=== PATIENT | male | born 1955 | race Caucasian/White ===

== ENCOUNTER 2017-10-06 17:28 | Inpatient (IN) | payer MEDICARE, OTHER ==
[~2017-10-06 17:28] MED LIST: Iopamidol 370 76% 100 ML VIAL ONE; Iopamidol 370 76% 50 ML VIAL FS ONE
[2017-10-06 18:00] LABS: #Basophils 0.1 thou/uL (0.0-0.2); #Eosinphils 0.2 thou/uL (0.0-0.7); #Lymphocytes 3.8 thou/uL (1.20-3.40); #Monocytes 0.6 thou/uL (0.11-0.59); #Neutrophils 4.7 thou/uL (1.40-6.50); %Basophils 0.7 % (0.0-1.0); %Eosinophils 1.8 % (0.0-10.0); %Monocytes 5.9 % (0.0-10.0); %Neutrophils 50.6 % (42.0-75.0); Hemoglobin 15.6 g/dL (14.0-18.0); Mean Corpuscular HGB CONC 33.3 g/dL (32.0-36.0); Mean Corpuscular Hemoglobin 29.8 pg (27.0-31.0); Mean Corpuscular Volume 89.6 fl (80.0-94.0); Mean Platelet Volume 8.7 fL (7.4-10.4); Platelet Count 262 thou/uL (130-400); Red Blood Cell (RBC) Count 5.22 mill/uL (4.70-6.10); White Blood Cell (WBC) Count 9.3 thou/uL (4.8-10.8)
[2017-10-06 18:15] LABS: ALT (SGPT) 14 U/L (8-55); AST (SGOT) 19 U/L (5-34); Albumin 4.4 g/dL (3.4-4.8); Alkaline Phosphatase 98 U/L (40-150); Anion Gap 22 mmol/L (10-20); BUN (Urea Nitrogen) 17 mg/dL (8.4-25.7); Bilirubin, Total 0.6 mg/dL (0.2-1.2); Calc. Creatinine Clearance 0 mL/min (70-130); Calcium 10.4 mg/dL (7.8-10.44); Carbon Dioxide 17 mmol/L (23-31); Chloride 99 mmol/L (98-107); Estimated GFR-MDRD 63; Globulin 4.1 g/dL (2.4-3.5); Glucose 432 mg/dL (80-115); Potassium 4.1 mmol/L (3.5-5.1); Protein, Total 8.5 g/dL (5.8-8.1); Sodium 134 mmol/L (136-145)
[2017-10-06 18:17] LABS: CKMB 1.6 ng/mL (0-6.6); Troponin I Less than 0.010 ng/mL (< 0.028)
[2017-10-06] MEDS ORDERED: Aggrastat 12.5 MG/250 ML 250 ML ONE (18:26)
[2017-10-06] MEDS ORDERED: Aggrastat 12.5 MG/250 ML 250 ML IVPB SCH (18:30)
[2017-10-06] MEDS ORDERED: DOPamine 400 MG/D5W 250 ML 250 ML ONE (18:45)
[2017-10-06] MEDS ORDERED: Clopidogrel Bisulfate 300 MG TAB ONE (18:45)
[2017-10-06] MEDS ORDERED: Mag-Al 1200 mg/1200 mg/30 ML UDCUP PO PRN (19:13)
[2017-10-06] MEDS ORDERED: Morphine 4 MG/ML VIAL SLOW IVP PRN (19:13)
[2017-10-06] MEDS ORDERED: Zolpidem Tartrate 5 MG TAB PO PRN (19:13)
[2017-10-06] MEDS ORDERED: Nitroglycerin 0.4 MG TAB (25 Tab Bottle) SL PRN (19:13)
[2017-10-06] MEDS ORDERED: Milk Of Magnesia 30 ML UDCUP PO PRN (19:13)
[2017-10-06] MEDS ORDERED: DOPamine 400 MG/D5W 250 ML 250 ML IVPB SCH (19:30)
[2017-10-06] MEDS: Sodium Chloride 0.9% 1,000 ML IV SCH (19:30)
--- NOTE | 2017-10-06 20:12 | RAD ---
PORTABLE CHEST ONE VIEW 10/06/17 at 5:01 p.m. HISTORY: Chest pain. FINDINGS: The heart size is normal. The lungs are expanded without focal areas of consolidation, pneumothorax o r pleural effusions. IMPRESSION: No radiographic evidence of acute cardiopulmonary process. POS: [facility]
[2017-10-06] MEDS: Morphine 4 MG/ML VIAL SLOW IVP PRN (21:01)
[2017-10-06] MEDS ORDERED: FLU VACC QS2017-18 36 mo. & older 0.5 ML SYRINGE IM ONE (21:30)
[2017-10-06 22:30] VITALS: BMI 29.7
--- NOTE | 2017-10-06 23:49 | CCL ---
The patient was brought to the cardiac catheter finisher and inspector with ST elevation in II, III, F , V4 through V6 and ST depression in V2 and V3. 1% lidocaine was infiltrated into the right femoral area. Using ultrasound guidance, the right femoral artery was entered. 6 Vincentian sheath was inserted. ACTs were obtained during the case to guide heparin dosages to achieve an ACT of greater than 300. Initially, a 6 Vincentian Judkin's right 4 guide was inserted. Right coronary was totally occluded. A floppy choice was initially tried to traverse the area, but would not. With a Whisper wire and significant amount of manipulation the area was able to be crossed. An Emerge 3.0 x 15 mm balloon would not cross. This was removed and emerge 1.5 x 12 mm balloon was inserted and the area was predilated. This was removed and then the Emerge 3.0 x 15 mm balloon was positioned and predilated. Rebel 4.0 x 24 mm stent was then inserted. This would not traverse into the mid right coronary over the Whisper wire. Decision was then made to remove the stent and an extra support wire was inserted as a fawad wire to a Whisper wire. The stent was then placed over the extra support wire and again with some manipulation was able to be positioned and deployed. The Whisper wire was removed prior to deploying the stent. There appeared to be a significant narrowing or thrombus at the bifurcation of the posterior descending and posterolateral. Aggrastat was started and during the case, this appeared to become increasingly not significant The distal posterolateral was totally occluded and attempts were made to cross this with the extra support wire which were unsuccessful. There did appear to be a retrograde filling of this area to the left this may have been a chronic total occlusion. The right 4 guide was then removed. 6-Vincentian left 4 diagnostic catheter was inserted for left coronary arteriography. The sheaths were sutured in place. Aggrastat was continued. Also during the case, the patient received Plavix 600 mg. RESULTS: 1. Left main was normal. 2. The LAD had a 50% proximal and 50% mid stenosis. There was an 80% lesion in the first diagonal at a bifurcation. 3. The circumflex had a 50% proximal stenosis. 4. The right coronary artery was heavily calcified with a 99-100% mid stenosis and also total occlusion of the distal right posterolateral artery. INTERVENTION RESULTS: The initial lesion was 99-100%, final lesion was 0%. IMPRESSION: 1. Three-vessel coronary artery disease. 2. Successful stent placement in the mid right coronary artery. MAURY
[2017-10-07] MEDS ORDERED: Dextrose 50% Abboject 50 ML SYRINGE IVP PRN (00:04)
[2017-10-07] MEDS ORDERED: Dextrose 5% in Water 1,000 ML IV PRN ×2 (00:04→09:56)
[2017-10-07 00:11] LABS: CKMB 30.7 ng/mL (0-6.6); Troponin I 4.882 ng/mL (< 0.028)
[2017-10-07] MEDS: HYDROcodone/Acetaminophen 10/325 mg Tablet PO PRN ×2 (00:14→05:54)
[2017-10-07] MEDS: Insulin Regular 300 UNITS/3 ML VIAL SC PRN ×2 (00:18→06:24)
--- NOTE | 2017-10-07 01:04 | HP ---
HISTORY: Cristina Fitzgerald is a 62-year-old white male, who denies any significant cardiac problems in the past. Today, he was sitting and watching TV approximately 30 minutes prior to arrival in the emergency room, he began to have severe substernal chest pressure associated with diaphoresis, nausea, and shortness of breath. He came to the emergency room and had early changes consistent with an inferolateral myocardial infarction. He has been given four aspirin as well as sublingual nitroglycerin and his ST segment has continued to worsen, although he does state that his pain is improved. PAST MEDICAL HISTORY: Remarkable for diabetes and hypertension. He denies any history of hypercholesterolemia. MEDICATIONS: Unknown at this time. ALLERGIES: None. OPERATIONS: He has had laparoscopic cholecystectomy and he says he has 8 back surgeries with chronic back pain. SOCIAL HISTORY: He does not smoke or drink. FAMILY HISTORY: Both his mother and father had myocardial infarctions. REVIEW OF SYSTEMS: Twelve-point review of systems otherwise unremarkable. PHYSICAL EXAMINATION: VITAL SIGNS: Blood pressure 129/71, pulse of 80. HEENT: PERRL. NECK: Supple. CHEST: Clear. CARDIAC: S1 and S2 are normal, without any S3, S4, or murmurs. Carotid upstrokes are normal, without bruits. ABDOMEN: Normal bowel sounds, without tenderness or organomegaly. EXTREMITIES: Revealed no clubbing, cyanosis, or edema. NEUROLOGIC: Grossly intact. SKIN: Warm and dry. IMAGING: EKG reveals 4-[address] segment elevation in lead 3, 3-4 mm elevation in II and F, and V4 through V6 with reciprocal ST segment depression in the anterior chest leads consistent with inferoposterior, lateral myocardial infarction. LABORATORY DATA: Currently, is pending except for glucose of 337. He has had no significant previous admissions to this hospital. IMPRESSION: 1. Inferoposterior and lateral ST-elevation myocardial infarction. 2. Hypertension. 3. Diabetes. 4. Positive family history. 5. Chronic back pain. PLAN: The situation was discussed with the patient. It was recommended that he undergo emergent cardiac catheterization. Risks of this were discussed including , myocardial infarction, dye reaction, vascular injury, CVA, transfusion, limb loss, renal loss, etc. Also, risk of intervention with PTCA and stent placement were discussed including , myocardial infarction, emergent CABG, restenosis, stent thrombosis, vessel perforation, etc. He understands and is agreeable to proceed. We did discuss drug versus bare metal stents. With his multiple other health problems, I feel that his best option probably would be a bare metal stent. MAURY
[2017-10-07] MEDS: Sodium Chloride 0.9% 1,000 ML IV SCH (03:15)
[2017-10-07] MEDS ORDERED: Sodium Chloride 0.9% 1,000 ML IV SCH (04:00)
[2017-10-07] MEDS: Morphine 4 MG/ML VIAL SLOW IVP PRN ×2 (05:56→14:22)
[2017-10-07 06:41] LABS: #Lymphocytes 0.7 thou/uL (1.20-3.40); #Monocytes 0.5 thou/uL (0.11-0.59); #Neutrophils 9.9 thou/uL (1.40-6.50); %Eosinophils 0.3 % (0.0-10.0); %Lymphocytes 5.8 % (21.0-51.0); %Monocytes 4.8 % (0.0-10.0); %Neutrophils 89.1 % (42.0-75.0); Hemoglobin 14.4 g/dL (14.0-18.0); Mean Corpuscular HGB CONC 32.4 g/dL (32.0-36.0); Mean Corpuscular Hemoglobin 29.2 pg (27.0-31.0); Mean Corpuscular Volume 90.2 fl (80.0-94.0); Mean Platelet Volume 9.2 fL (7.4-10.4); Platelet Count 234 thou/uL (130-400); RBC Distribution Width 12.9 % (11.5-14.5); Red Blood Cell (RBC) Count 4.92 mill/uL (4.70-6.10); White Blood Cell (WBC) Count 11.1 thou/uL (4.8-10.8)
[2017-10-07 07:05] LABS: ALT (SGPT) 23 U/L (8-55); AST (SGOT) 49 U/L (5-34); Albumin 4.3 g/dL (3.4-4.8); Alkaline Phosphatase 93 U/L (40-150); Anion Gap 23 mmol/L (10-20); BUN (Urea Nitrogen) 18 mg/dL (8.4-25.7); Bilirubin, Total 0.7 mg/dL (0.2-1.2); Calc. Creatinine Clearance 87 mL/min (70-130); Calcium 10.1 mg/dL (7.8-10.44); Carbon Dioxide 16 mmol/L (23-31); Cardiac Risk 4.1 (Less than 4.5); Chloride 104 mmol/L (98-107); Cholesterol 147 mg/dl (< 200 Desired); Estimated GFR-MDRD 65; Globulin 3.2 g/dL (2.4-3.5); Glucose 326 mg/dL (80-115); HDL Cholesterol 36 mg/dL (>60 Neg Risk); LDL Cholesterol, Calculated 92 mg/dL; Potassium 4.2 mmol/L (3.5-5.1); Protein, Total 7.5 g/dL (5.8-8.1); Sodium 139 mmol/L (136-145); Triglycerides 96 mg/dL (Less than 150)
[2017-10-07 07:11] LABS: CKMB 47.1 ng/mL (0-6.6); Troponin I 11.215 ng/mL (< 0.028)
[2017-10-07] MEDS ORDERED: Prevnar 13-Val Conj/PF 0.5 ML SYRINGE IM ONE (09:00)
[2017-10-07] MEDS ORDERED: Dextrose 50% Abboject 50 ML SYRINGE SLOW IVP PRN (09:56)
[2017-10-07] MEDS ORDERED: HumaLOG 300 UNITS/3 ML VIAL SC PRN ×2 (09:56)
[2017-10-07] MEDS: Clopidogrel Bisulfate 75 MG TAB PO SCH (10:29)
[2017-10-07] MEDS ORDERED: Insulin Detemir 100 UNITS/ML 12 UNITS in Pre-Filled Syringe 1 EACH SC SCH (12:00)
[2017-10-07 12:42] LABS: CKMB 39.3 ng/mL (0-6.6); Critical Call CKMBM RESULT DECREASING; Critical Call Chem Troponin I RESULT DECREASING; Troponin I 9.416 ng/mL (< 0.028)
--- NOTE | 2017-10-07 13:05 | CON ---
DATE OF CONSULTATION: 10/07/2017 PRIMARY CARE PHYSICIAN: The patient does not have a primary care physician. ATTENDING PHYSICIAN: Dr. Roel Gallardo. REASON FOR CONSULTATION: Diabetes management. HISTORY OF PRESENT ILLNESS: Mr. Fitzgerald is a pleasant 62-year-old gentleman who was admitted to the [facility] for an acute inferior ME. He says that he was doing fine until yesterday. He had sat down to watch TV and then suddenly he began having chest pain and broke out into his left. He came to the e mergency room where he was found to have an inferoposterior and lateral ST segment elevation myocardi al infarction. He was taken emergently to the laboratory apparatus glass grinder and was found to have 3-vessel coronary arter y disease with 3-vessel coronary artery disease. He had a successful stent placement to the mid RCA. I am seeing him the following morning and he has no complaints of having some back pain from lying down for a long period. He denies any chest pain or shortness of breath. When asked about his diabe july, he says he has been diabetic for approximately 20 years. He says that he recently moved to the area and currently does not have a primary care physician and has not been taking his Lantus insulin on a regular basis. He says his diabetes is generally not that well controlled and his last hemoglob in A1c was about 9.1. PAST MEDICAL HISTORY: Again, significant for diabetes mellitus and hypertension. PAST SURGICAL HISTORY: He has had 7 back surgeries and cholecystectomy. ALLERGIES: No known drug allergies. SOCIAL HISTORY: He is and has 3 children. He is a nonsmoker, nondrinker. FAMILY HISTORY: Significant for heart disease in both parents. His father around age 69 and hi s mother around age 68. He also has brothers with heart disease and cancer. MEDICATIONS: Jardiance daily, Lantus insulin 35 units q.p.m. and benazepril 40 mg daily, Sycamore 10/32 5 q.6 hours as needed, morphine sulfate extended release 100 mg twice a day and Cymbalta 60 mg daily, amlodipine, atorvastatin 1 tablet daily, oxycodone 15 mg q.4 hours as needed. PHYSICAL EXAMINATION: GENERAL: He is alert and oriented. He appears to be in no acute distress. VITAL SIGNS: His blood pressure was 113/55, heart rate 74, respiratory rate of 20, and he is afebril e. HEENT: Pupils equal, round, and reactive. Extraocular muscles are intact. Sclerae are anicteric. Throat: There is no erythema, no exudates. NECK: No adenopathy, no bruits. LUNGS: Clear. There is no wheezing, no rales. CARDIOVASCULAR: He has a normal S1 and S2. No S3 or S4. No murmurs, clicks or rubs. ABDOMEN: Soft, obese, it is nontender, nondistended. Positive for bowel sounds. No rebound or guar ding. EXTREMITIES: Curiously the patient has no hair on his lower extremities. He is essentially hairless ; however, his pulses are palpable bilaterally. He does have some mycotic nails on the left great to e. NEUROLOGIC: The exam is nonfocal. LABORATORY: Sodium 139, potassium 4.2, chloride is 104, CO2 is 16, BUN of 18, creatinine 1.14, gluco se is 326, troponin was 11.215. The white blood cell count 11.1, hemoglobin 14.4, hematocrit is 44.4 , platelet count is 234. ASSESSMENT: 1. This is a pleasant 62-year-old gentleman who is being admitted for an acute inferior ST segment e levation myocardial infarction. He also has a history of diabetes mellitus which has not been well c ontrolled. With regards to the diabetes the plan is that he will be able to eat a solid diet today. Therefore, we will go ahead and give him half of his usual Lantus dose now since his blood sugars ar e elevated and cover him with a sliding scale. We can restart his usual dose this evening and then t itrate as needed. If he has his own Jardiance that can be taken while he is in the hospital. 2. With regards to the ST-segment elevation myocardial infarction we will defer care to Cardiology. Thank you for allowing us to participate in the care of this very nice gentleman.
[2017-10-07] MEDS ORDERED: Haloperidol Lactate 5 MG/ML VIAL FS PRN (18:13)
[2017-10-07] MEDS: Metoprolol Tartrate 25 MG TAB PO SCH (21:38)
[2017-10-07] MEDS: Atorvastatin Calcium 40 MG TAB PO SCH (21:38)
[2017-10-07] MEDS: Insulin Detemir 100 UNITS/ML 35 UNITS in Pre-Filled Syringe 1 EACH SC SCH (21:39)
--- NOTE | 2017-10-07 23:45 | CON ---
DATE OF CONSULTATION: 10/07/2017 HISTORY OF PRESENT ILLNESS: Mr. Fitzgerald is a pleasant gentleman who presented yesterday afternoon with chest discomfort. He underwent coronary intervention with the placement of a stent. He is in the Critical Care Unit. His just had a chest sheath removed. I am consulted because of his presence. He denies having chest pain. He denies shortness of breath or orthopnea. PAST MEDICAL HISTORY: Remarkable for diabetes and hypertension. PAST SURGICAL HISTORY: Remarkable for cholecystectomy, multiple back surgeries. He says he deals ch ronic back pain. SOCIAL HISTORY: He is a non-smoker and nondrinker. ALLERGIES: He has no reported drug allergies. FAMILY HISTORY: Positive for vascular disease. REVIEW OF SYSTEMS: A 12-point review of systems otherwise negative. PHYSICAL EXAMINATION: VITAL SIGNS: Blood pressure 120/59, heart rate 86, respiratory rate 16, oximetry is 96%. HEENT: Pupils are equal. Sclerae is anicteric. NECK: Supple. LUNGS: Remarkable for coarse equal breath sounds. HEART: Regular rhythm. S1 and S2 are normal. ABDOMEN: Soft and nontender. EXTREMITIES: Without clubbing, cyanosis, or edema. LABORATORY DATA: White count 11.1, hemoglobin 14.4, platelets 234. Electrolytes: Sodium 139, potas sium 4.2, chloride 104, bicarbonate 16, anion gap was 19 on presentation, BUN 18, creatinine 1.14, gl ucose 326. Peak troponin is 11.2. Myocardial infarction treated of a mid right coronary lesion. Other lesions were not extended. IMPRESSION: 1. Status post myocardial infarction with percutaneous intervention that has been successful. Addit ional coronary artery disease to be addressed by Cardiology. 2. Diabetes. 3. Hypertension. PLAN: Continue current care. He appears to be medically stable at this time This is a 70-minute consult of which 50% of the time was spent reviewing records, reviewing x-rays, r eviewing lab clerk reports on the unit discussing care with care providers and the nursing staff.
--- NOTE | 2017-10-08 09:19 | PDOC.PN ---
- Subjective Encounter Start Date: 10/08/17 Encounter Start Time: 09:17 Subjective: no chest pain or sob - Objective MAR Reviewed: Yes Vital Signs & Weight: Vital Signs (12 hours) Temp Pulse Resp BP Pulse Ox 10/08/17 07:51 97.3 F L 73 16 98 10/08/17 07:49 97.3 F L 73 16 117/60 98 10/08/17 02:26 96.9 F L 69 20 98 10/08/17 02:16 96.9 F L 69 20 113/56 L 98 10/08/17 00:00 98.4 F Weight Weight 206 lb 3.2 oz Most Recent Monitor Data Heart Rate from ECG 71 NIBP 114/59 NIBP BP-Mean 65 Respiration from ECG 16 SpO2 98 I&O: 10/07/17 10/08/17 10/09/17 06:59 06:59 06:59 Intake Total 2992 2262 Output Total 2450 3050 Balance 542 -788 Result Diagrams: 10/07/17 06:24 10/07/17 06:24 Additional Labs: Accuchecks 10/08/17 10/07/17 10/07/17 05:45 21:45 17:48 POC Glucose 99 161 H 171 H 10/07/17 12:35 POC Glucose 218 H Phys Exam - Physical Examination Constitutional: NAD Neck: no JVD Respiratory: clear to auscultation bilateral Cardiovascular: RRR, no significant murmur Gastrointestinal: soft, non-tender, positive bowel sounds Musculoskeletal: no edema, pulses present Dx/Plan (1) STEMI (ST elevation myocardial infarction) Status: Acute Qualifiers: Involved coronary artery: right coronary artery Qualified Code(s): I21.11 - ST elevation (STEMI) myocardial infarction involving right coronary artery (2) DM type 2 (diabetes mellitus, type 2) Status: Chronic Qualifiers: Diabetes mellitus complication status: without complication Diabetes mellitus equipment operator intermodal yard insulin use: with half-way use Qualified Code(s): E11.9 - Type 2 diabetes mellitus without complications; Z79.4 - retirement (current) use of insulin; Z79.4 - retirement (current) use of insulin; Z79.4 - retirement ( current) use of insulin; Z79.4 - retirement (current) use of insulin (3) HTN (hypertension) Code(s): I10 - ESSENTIAL (PRIMARY) HYPERTENSION Status: Chronic Qualifiers: Hypertension type: essential hypertension Qualified Code(s): I10 - Essential (primary) hypertension (4) Dyslipidemia Code(s): E78.5 - HYPERLIPIDEMIA, UNSPECIFIED Status: Chronic - Plan cont plavix, ASA, statin -: cont accu/ss/ long acting insuli- adjust dose as appropriate * .
[2017-10-08] MEDS: Metoprolol Tartrate 25 MG TAB PO SCH ×2 (09:41→20:34)
[2017-10-08] MEDS: Clopidogrel Bisulfate 75 MG TAB PO SCH (09:41)
[2017-10-08] MEDS: HYDROcodone/Acetaminophen 10/325 mg Tablet PO PRN (17:55)
--- NOTE | 2017-10-08 19:53 | PRG ---
DATE OF SERVICE: 10/08/2017 SUBJECTIVE: Cristina Fitzgerald has no complaints. He is just complaining of feeling weak. He denies having any chest pain. He ambulated today. He says without not much difficulty. OBJECTIVE: GENERAL: He is in no distress. He is afebrile. VITAL SIGNS: Heart rate in the 60s, respiratory rate is the teens, oximetry is 96, blood pressure 12 6/62 this morning, 119/58 this afternoon. Intake and output is negative 788. LUNGS: Clear. HEART: Regular rhythm. ABDOMEN: Soft. IMPRESSION: Status post myocardial infarction with percutaneous intervention. Plan per Cardiology, he is stable after moving out of the Critical Care Unit. We will sign off.
[2017-10-08] MEDS: Insulin Detemir 100 UNITS/ML 35 UNITS in Pre-Filled Syringe 1 EACH SC SCH (20:34)
[2017-10-08] MEDS: Atorvastatin Calcium 40 MG TAB PO SCH (20:34)
[2017-10-09] MEDS: HYDROcodone/Acetaminophen 10/325 mg Tablet PO PRN ×4 (00:22→21:32)
[2017-10-09] MEDS ORDERED: Sodium Chloride 0.9% 10 ML ONE (07:52)
--- NOTE | 2017-10-09 08:18 | PDOC.PN ---
- Subjective Encounter Start Date: 10/09/17 Encounter Start Time: 08:16 Subjective: stronger, no chest pain, sob - Objective MAR Reviewed: Yes Vital Signs & Weight: Vital Signs (12 hours) Temp Pulse Resp BP Pulse Ox 10/09/17 03:50 97.4 F L 100 20 117/60 96 Weight Weight 207 lb 14.4 oz Most Recent Monitor Data Heart Rate from ECG 71 NIBP 114/59 NIBP BP-Mean 65 Respiration from ECG 16 SpO2 98 I&O: 10/08/17 10/09/17 10/10/17 06:59 06:59 06:59 Intake Total 2262 510 Output Total 3050 600 Balance -788 -90 Result Diagrams: 10/07/17 06:24 10/07/17 06:24 Additional Labs: Accuchecks 10/09/17 10/08/17 10/08/17 06:03 20:41 20:19 POC Glucose 103 173 H 175 H 10/08/17 10/08/17 16:42 11:44 POC Glucose 147 H 189 H Phys Exam - Physical Examination Neck: no JVD Respiratory: clear to auscultation bilateral Cardiovascular: RRR, no significant murmur, no rub Gastrointestinal: soft, non-tender, positive bowel sounds Musculoskeletal: no edema Dx/Plan (1) STEMI (ST elevation myocardial infarction) Status: Acute Qualifiers: Involved coronary artery: right coronary artery Qualified Code(s): I21.11 - ST elevation (STEMI) myocardial infarction involving right coronary artery (2) DM type 2 (diabetes mellitus, type 2) Status: Chronic Qualifiers: Diabetes mellitus complication status: without complication 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: with dry end tester use Qualified Code(s): E11.9 - Type 2 diabetes mellitus without complications; Z79.4 - corn shucker (current) use of insulin; Z79.4 - corn shucker (current) use of insulin; Z79.4 - FDC ( current) use of insulin; Z79.4 - FDC (current) use of insulin (3) HTN (hypertension) Code(s): I10 - ESSENTIAL (PRIMARY) HYPERTENSION Status: Chronic Qualifiers: Hypertension type: essential hypertension Qualified Code(s): I10 - Essential (primary) hypertension (4) Dyslipidemia Code(s): E78.5 - HYPERLIPIDEMIA, UNSPECIFIED Status: Chronic - Plan doing well, cont ASA, statin, plavix, b-blocked -: discuss with cardiology * .
[2017-10-09] MEDS: Clopidogrel Bisulfate 75 MG TAB PO SCH (08:46)
[2017-10-09] MEDS: Metoprolol Tartrate 25 MG TAB PO SCH ×2 (08:46→21:14)
[2017-10-09] MEDS: Atorvastatin Calcium 40 MG TAB PO SCH (21:14)
[2017-10-09] MEDS: Insulin Detemir 100 UNITS/ML 35 UNITS in Pre-Filled Syringe 1 EACH SC SCH (21:15)
[2017-10-10] MEDS: HYDROcodone/Acetaminophen 10/325 mg Tablet PO PRN ×3 (06:37→15:29)
[2017-10-10] MEDS ORDERED: Sodium Chloride 0.9% 10 ML ONE (08:31)
[2017-10-10] MEDS: Metoprolol Tartrate 25 MG TAB PO SCH (08:52)
[2017-10-10] MEDS: Clopidogrel Bisulfate 75 MG TAB PO SCH (08:52)
[2017-10-10 15:33] VITALS: BP 124/70; TEMP 97.9
--- NOTE | 2017-10-10 16:51 | DIS ---
DATE OF ADMISSION: 10/07/2017 DATE OF DISCHARGE: 10/10/2017 DISPOSITION: Discharged home. The patient initially admitted by Dr. Gallardo. The patient has an out of town physician, Kathy Luna. FINAL DIAGNOSES: ST elevation myocardial infarction, diabetes mellitus type 2, dyslipidemia, hyperte nsion. DISCHARGE MEDICATIONS: Lipitor 80 mg a day, Plavix 75 mg a day, detemir insulin 35 units at bedtime, metoprolol 50 mg twice a day, nitroglycerin 0.4 mg sublingual, Jardiance 25 mg p.o. daily, Cymbalta 60 mg daily. MEDICATIONS HELD: Amlodipine, benazepril. ALLERGIES: None. PENDING AT THE TIME OF DISCHARGE: Nothing. CODE STATUS: FULL. HOSPITAL COURSE: The patient was seen in the emergency room and referred to Dr. Gallardo with a ST e levation myocardial infarction. EKG was consistent with inferolateral myocardial infarction. The gwen barrera was taken on cardiac catheterization lab. He had 3-vessel coronary artery disease. He had a s uccessful PCI bare metal stent to the right coronary artery. Patient's initial laboratory revealed t roponin to 4.9, 11.2, 9.4 with elevated CK-MBs. Basic metabolic profile: Sodium 134, potassium 4.1, chloride 99, CO2 of 17, BUN 17, creatinine 1.17, blood sugar initially 337. He has done remarkably well postoperatively. Sound was consulted for medical management. He was placed on Accu-Cheks, slid ing scale, continued on his prehospitalization insulin dose. His blood sugars have been adequately c ontrolled under 200 at this time. His Jardiance has been reinstituted at the time of discharge. He will need followup for control with his PCP. Initial CBC was normal. Follow up CBC showed a mild el evation of white count 11.1, otherwise unremarkable. While the patient was in the Intensive Care Uni , he was seen by engineering designer, Dr. Lauro Bhandari. The patient is doing well at this time. He is bein g seen today by Dr. Gallardo and has been released per Dr. Gallardo. His discharge prescriptions hav e been written. He is off his amlodipine and benazepril. His last 4 blood pressures have been 121/6 0, 137/63, 143/72 and 124/70. Therefore, these are being continued off. The patient has an appointm ent to see his primary care doctor Kathy Luna, 10/17/2017 at 9:20 a.m., has an appointment with [facility] cardiac rehabilitation on 10/23/2017. He will be followed up by Dr. Roel Gallardo per his recommendations.
[2017-10-10] MEDS ORDERED: Atorvastatin Calcium 40 MG TAB PO SCH (21:00)
[2017-10-10] MEDS ORDERED: Metoprolol Tartrate 50 MG TAB PO SCH (21:00)
== END 2017-10-10 17:34 | disposition home or self-care (01) | DRG 249 ==
LOC: ERS 17:28 → CCU 19:30 → 2NO 10-08 02:38
PROVIDERS: ADMIT Internal Medicine Cardiovascular Disease; ATTEND Internal Medicine Cardiovascular Disease
PROC: 02703DZ Dilation of Coronary Artery, One Artery with Intraluminal Device, Percutaneous Approach (ICD-10-PCS; principal; 2017-10-06)
PROC: 4A023N7 Measurement of Cardiac Sampling and Pressure, Left Heart, Percutaneous Approach (ICD-10-PCS; 2017-10-06)
PROC: B2111ZZ Fluoroscopy of Multiple Coronary Arteries using Low Osmolar Contrast (ICD-10-PCS; 2017-10-06)
PROC: 02C03ZZ Extirpation of Matter from Coronary Artery, One Artery, Percutaneous Approach (ICD-10-PCS; 2017-10-06)
PROC: 3E033GC Introduction of Other Therapeutic Substance into Peripheral Vein, Percutaneous Approach (ICD-10-PCS; 2017-10-06)
DX: I21.11 ST elevation (STEMI) myocardial infarction involving right coronary artery (principal); E11.9 Type 2 diabetes mellitus without complications; I21.19 ST elevation (STEMI) myocardial infarction involving other coronary artery of inferior wall; E78.00 Pure hypercholesterolemia, unspecified; I10 Essential (primary) hypertension; M54.9 Dorsalgia, unspecified; G89.29 Other chronic pain; Z90.49 Acquired absence of other specified parts of digestive tract; Z79.4 Long term (current) use of insulin
CPT/HCPCS: 36415; 36416; 71045; 76942; 80053; 80061; 82553; 83880; 84484; 85025; 85347; 90471; 90682; 92941; 92977; 93005; 93010; 93306; 93454; 93798; 94760; 96361; 96374; A4216; C1769; C1876; C1887; G0008; J1265; J1644; J1815; J2270; J3246; Q2036

== ENCOUNTER 2018-06-21 14:38 | Inpatient (IN) | payer MEDICARE ==
[2018-06-21 15:44] LABS: Bilirubin Negative (Negative); Blood, Urine Negative (Negative); Clarity CLEAR (Clear); Glucose, Urine (Dipstick) >=1000 mg/dL (Negative); Leukocyte Negative (Negative); Nitrite Negative (Negative); Protein, Urine (Dipstick) Trace mg/dL (Neg-Trace); Specific Gravity, Urine 1.024 (1.002-1.036); Urobilinogen 0.2 mg/dL (0.2-1.0); pH, Urine 5.5 (5.0-9.0)
[2018-06-21 16:10] LABS: Mean Corpuscular HGB CONC 30.9 g/dL (32.0-36.0); Mean Corpuscular Hemoglobin 29.8 pg (27.0-31.0); Mean Corpuscular Volume 96.6 fL (78.0-98.0); Mean Platelet Volume 8.5 fL (7.4-10.4); Platelet Count 344 thou/uL (130-400); RBC Distribution Width 12.9 % (11.5-14.5); Red Blood Cell (RBC) Count 5.69 mill/uL (4.70-6.10); White Blood Cell (WBC) Count 20.4 thou/uL (4.8-10.8)
[2018-06-21 16:20] LABS: Base Excess-Venous -25.2 mmol/L (0 (+/- 2.5)); Bicarbonate (HCO3v) 3.9 mmol/L (1.0-85.0); CO2 Tension (PvCO2) 15.6 mmHg (41.0-51.0); Calcium, Ionized 1.15 mmol/L (1.12-1.32); Hemoglobin - Calc 19.7 g/dL (12.0-18.0); O2 Tension (PvO2) 41.7 mmHg (35.0-45.0); Potassium 5.1 mmol/L (3.4-4.7); T. Carbon Dioxide 4.4 mmol/L (1.0-85.0); pH (Venous) 7.012 (7.35-7.45)
[2018-06-21 16:25] LABS: Glucose 320 mg/dL (80-115); MDiff Complete? YES
[2018-06-21 16:26] LABS: Band 4 % (5-11); Lymphocytes 9 % (21-51); Monocytes 4 % (0-10); Neutrophil 83 % (42-75); PLT Morphology Comment Appears Adequate; RBC Morphology Normal
[2018-06-21 16:32] LABS: ALT (SGPT) 17 U/L (8-55); AST (SGOT) 17 U/L (5-34); Albumin 4.8 g/dL (3.4-4.8); Alkaline Phosphatase 112 U/L (40-150); BUN (Urea Nitrogen) 28 mg/dL (8.4-25.7); Bilirubin, Total 0.6 mg/dL (0.2-1.2); Calc. Creatinine Clearance 0 mL/min (70-130); Calcium 10.2 mg/dL (7.8-10.44); Chloride 106 mmol/L (98-107); Estimated GFR-MDRD 36; Globulin 3.8 g/dL (2.4-3.5); Glucose 322 mg/dL (80-115); Potassium 5.3 mmol/L (3.5-5.1); Protein, Total 8.6 g/dL (5.8-8.1); Sodium 136 mmol/L (136-145)
[2018-06-21 16:36] LABS: CKMB 2.8 ng/mL (0-6.6); Troponin I 0.084 ng/mL (< 0.028)
[2018-06-21 16:37] LABS: Carbon Dioxide Less than 8 mmol/L (23-31)
[2018-06-21] MEDS ORDERED: Piperacillin/Tazobactam 4.5 GM VIAL ONE (16:59)
[2018-06-21 17:19] LABS: Actual Bicarbonate (HCO3a) 3.2 mEq/L (22-28); Analyzer IN Cardio ER; Base Excess (BEa) -23.4 mEq/L (-2.0 to +3.0); Calcium, Ionized 1.33 mmol/L (1.12-1.30); Carboxyhemoglobin (COHb) 0.5 gm% (0.0-3.0); Hemoglobin (Hb) 15.9 g/dL (14.0-18.0); O2 Tension (PaO2) 188.2 mmHg (> 80.0); Potassium - ABG Lab 4.92 mmol/L (3.70-5.30)
[2018-06-21 17:22] LABS: pH, Arterial 7.12 (7.35-7.45)
[2018-06-21 17:23] LABS: CO2 Tension 10.2 mmHg (35.0-45.0)
[2018-06-21] MEDS ORDERED: Insulin Regular 100 units/100 ml in NS IVPB SCH (17:30)
--- NOTE | 2018-06-21 18:07 | RAD ---
PORTABLE AP CHEST X-RAY: 06/21/2018 HISTORY: Chest pain and shortness of breath since Friday. COMPARISON: 10/06/2017 FINDINGS: There are dorsum column stimulator leads again overlying the thoracic spine. The cardiac silhouette and pulmonary vasculature are within normal limits. Minimal linear scarring versus atelectasis is pr esent at each lung base. The lungs are otherwise clear. There has been no interval change from the prior exam. IMPRESSION: No acute cardiopulmonary process. POS: [facility]
--- NOTE | 2018-06-21 18:38 | PDOC.FPRHP ---
- History of Present Illness Chief Complaint: Shortness of breath History of Present Illness: Mr. Fitzgerald presents to the ED today with increased rate of respiration. He has been not feeling himself for the past week and for the past three days has had an increase in his chronic rib pain, decreased PO intake, headache, nausea and vomiting. Denies any fever, new chest pain, focal weakness, diarrhea , or dysuria. Unsure if he has taken his insulin as prescribed. He stopped taking his metformin 2 wks ago because it was upsetting his stomach. Pt with increased somnolence and difficulty speaking, history obtained from at time of exam and medical records ED Course: placed on BIPAP, ABG/VBG revealed acidosis, BMP + anion gap of 20, glucose 320, tropx1 .085, elevated BUN/CR, glucose 320. WBC 20.4 UA + for ketones - CXR - Allergies/Adverse Reactions Allergies Allergy/AdvReac Type Severity Reaction Status Date / Time No Known Allergies Allergy Verified 10/06/17 23:06 - Home Medications Medication Instructions Recorded Confirmed Type Empagliflozin [Jardiance] 25 mg PO DAILY 10/06/17 06/21/18 History HYDROcodone Bit/APAP 10/325 [[place] 1 tab PO Q6HR PRN 10/06/17 06/21/18 History 10/325] Morphine Sulfate [Morphine Sulfate 100 mg PO Q12HR 10/06/17 06/21/18 History ER] Atorvastatin Calcium 80 mg PO HS #30 tablet 10/10/17 06/21/18 Rx Nitroglycerin 0.4 mg SL PRN PRN #25 tab.subl 10/10/17 06/21/18 Rx Aspirin [Aspirin Chewable] 81 mg PO DAILY 06/21/18 06/21/18 History DULoxetine [Cymbalta] 60 mg PO BID 06/21/18 06/21/18 History Ezetimibe [Zetia] 10 mg PO DAILY 06/21/18 06/21/18 History Isosorbide Mononitrate [Isosorbide 30 mg PO DAILY 06/21/18 06/21/18 History Mononitrate ER] metFORMIN HCl [Metformin HCl] 1,000 mg PO BID 06/21/18 06/21/18 History oxyCODONE /Acetaminophen [Percocet 2 tab PO Q4HR PRN 06/21/18 06/21/18 History 5/325] - History PMHx:DMII, HTN, HLD, CAD, Chronic pain PSHx: Spinal surgeries x8, cholecystectomy, Cardiac cath with stent 2017 FHx: none Social: no TAD - Review of Systems General: reports: fever/chills, fatigue. denies: weight/appetite/sleep changes Eyes: reports: vision changes ENT: denies: nasal congestion, rhinorrhea Respiratory: denies: cough, shortness of breath Cardiovascular: reports: chest pain (chronic). denies: palpitation, edema Gastrointestinal: reports: nausea, vomiting. denies: diarrhea, constipation, GI bleeding Genitourinary: denies: incontinence, dysuria Skin: denies: rashes, lesions, jaundice Musculoskeletal: denies: pain, tenderness Neurological: reports: other (headache). denies: numbness, syncope Psychological: reports: other (increased lethargy) - Vital signs BP: [130/66] HR: [106] RR: [28] Tmax: [97.9] Pox: [100]% on [BIPAP] Wt: [ 93.4kg] - Physical Exam Constitutional: other (Orientedx2, increased somnolence) HEENT: normocephalic and atraumatic, EOMI, grossly normal vision, grossly normal hearing Neck: supple, trachea midline Chest: no-tender to palpation Heart: RRR, normal S1/S2 Lungs: CTAB, good air movement, other (increased rate, bipap set to 20 resp/min) Abdomen: soft, non-tender, bowel sounds present Musculoskeletal: normal structure, normal tone Neurological: no focal deficit, CN II-XII intact Skin: no rash/lesions, capillary refill <2 seconds, no jaundice Heme/Lymphatic: no unusual bruising or bleeding, no purpura FMR H&P: Results - Labs Result Diagrams: 06/21/18 16:03 06/21/18 22:31 Lab results: WBC 20.4 thou/uL (4.8-10.8) H 06/21/18 16:03 Hgb 17.0 g/dL (14.0-18.0) 06/21/18 16:03 Hct 55.0 % (42.0-52.0) H 06/21/18 16:03 MCV 96.6 fL (78.0-98.0) 06/21/18 16:03 Plt Count 344 thou/uL (130-400) 06/21/18 16:03 Band Neuts % (Manual) 4 % (5-11) L 06/21/18 16:03 ABG pH 7.12 (7.35-7.45) L* 06/21/18 17:17 ABG pCO2 10.2 mmHg (35.0-45.0) L* 06/21/18 17:17 ABG pO2 188.2 mmHg (> 80.0) H 06/21/18 17:17 VBG pCO2 15.6 mmHg (41.0-51.0) L 06/21/18 16:16 VBG pO2 41.7 mmHg (35.0-45.0) 06/21/18 16:16 Sodium 136 mmol/L (136-145) 06/21/18 16:03 Potassium 5.3 mmol/L (3.5-5.1) H 06/21/18 16:03 Chloride 106 mmol/L (98-107) 06/21/18 16:03 Carbon Dioxide Less than 8 mmol/L (23-31) L* 06/21/18 16:03 BUN 28 mg/dL (8.4-25.7) H 06/21/18 16:03 Creatinine 1.87 mg/dL (0.6-1.3) H 06/21/18 16:03 Glucose 322 mg/dL (80-115) H 06/21/18 16:03 Lactic Acid 1.7 mmol/L (0.5-2.2) 06/21/18 17:56 Calcium 10.2 mg/dL (7.8-10.44) 06/21/18 16:03 Total Bilirubin 0.6 mg/dL (0.2-1.2) 06/21/18 16:03 AST 17 U/L (5-34) 06/21/18 16:03 ALT 17 U/L (8-55) 06/21/18 16:03 Alkaline Phosphatase 112 U/L (40-150) 06/21/18 16:03 CK-MB (CK-2) 2.8 ng/mL (0-6.6) 06/21/18 16:03 B-Natriuretic Peptide 127.6 pg/mL (0-100) H 06/21/18 16:03 Serum Total Protein 8.6 g/dL (5.8-8.1) H 06/21/18 16:03 Albumin 4.8 g/dL (3.4-4.8) 06/21/18 16:03 Urine Ketones > or equal to 80 mg/dL (Negative) H 06/21/18 15:25 Urine Blood Negative (Negative) 06/21/18 15:25 Urine Nitrite Negative (Negative) 06/21/18 15:25 Ur Leukocyte Esterase Negative (Negative) 06/21/18 15:25 FMR H&P: A/P - Problem List (1) Diabetic ketoacidosis associated with type 2 diabetes mellitus Current Visit: Yes Status: Acute Code(s): E11.10 - TYPE 2 DIABETES MELLITUS WITH KETOACIDOSIS WITHOUT COMA (2) Acute kidney injury Current Visit: Yes Status: Acute Code(s): N17.9 - ACUTE KIDNEY FAILURE, UNSPECIFIED (3) Hyperkalemia Current Visit: Yes Status: Acute Code(s): E87.5 - HYPERKALEMIA (4) Leukocytosis Current Visit: Yes Status: Acute Code(s): D72.829 - ELEVATED WHITE BLOOD CELL COUNT, UNSPECIFIED (5) Elevated troponin Current Visit: Yes Status: Acute Code(s): R74.8 - ABNORMAL LEVELS OF OTHER SERUM ENZYMES (6) Dyslipidemia Current Visit: No Status: Chronic Code(s): E78.5 - HYPERLIPIDEMIA, UNSPECIFIED (7) HTN (hypertension) Current Visit: No Status: Chronic Code(s): I10 - ESSENTIAL (PRIMARY) HYPERTENSION Qualifiers: Hypertension type: essential hypertension Qualified Code(s): I10 - Essential (primary) hypertension - Plan 1. DKA - 2/2 not taking meds vs infection - insulin drip per protocol - NS 250 ml/hr - BMP to measure anion gap q2hr 2. Acute kidney injury - most likely 2/2 dehydration - NS 250ml/hr - repeat CMP in AM 3. Hyperkalemia - above threshold for supplementation at this time - continue to monitor BMP q2hr 4. Leukocytosis - possible indication of infection - UA, CXR negative, no skin lesions - UCx, BCx pending - order procal - start IV abx empirically, reasses pending results - consider other sources of infection 5. Elevated troponin - most likely 2/2 demand ischemia from dehydration - trend x3 - EKG neg 6. HTN - chronic, hold meds for now 7. HLD - chronic, hold meds for now Disposition/LOS: admit to IMCU on insulin drip, monitor for anion gap closure, encourage PO intake, move to sliding scale insulin when possible. FMR H&P: Upper Level - Pertinent history 63F presents to ER for 5 days of not feeling well. Issue started with exacerbation of left sided rib pain, s/p thoracotomy. His stated that usually he is good with taking his med, but when he gets his rib pain, he doesn' t eat or take his medication appropriately. Patient endorse decreased PO intake and not taking his diabetic medication. He then came in today for feeling malaise and diaphoretic. Associated with nausea. Specifically denies fever, chills, abd pain, diarrhea, skin rashes. - Pertinent findings Gen: Alert, oriented x3 Resp: CTA bilaterally HEENT: Wearing bipap CV: RRR with no apparent m/g/r Abd: Normoactive, not tender to palpation Derm: No skin rash noted on back, abdomen, extremities. Neuro: Moves all extremities Heme: No bruising noted. - Plan Date/Time: 06/21/181837 I, [Joey Goldman], have evaluated this patient and agree with findings/plan as outlined by collector of internal revenue resident. Pertinent changes/additions are listed here. 1. DKA - DKA based on elevated b-hydroxybutyrate, acidosis, elevated glucose, patient symptom and hx of not taking diabetic medication. - Plan to start insulin drip, continue NS fluid, no LR available at this time. Potassium elevated, so no replacement at this time. BMP q2hr. SSI for when gap closes. - Start home dose of basal insulin when gap close and tolerates PO intake. 2. Elevated troponin - Likely demand related, and recent ROSA. - Plan to repeat EKG and trop q 3 hr. 4. ROSA - Likely secondasry to DKA. - Plan for fluid hydration. 5. Leukocytosis - Elevated but no obvious systemic sign of infection, no fever - No new GI, or Resp symptom besides tachypnea. CXR negative for acute infection. - At this time, will trend. Obtain blood culture. Obtain Procalcitonin. Broad spectrum abx. 6. Tachycardia - In ER, receive two dose of cardizem. Will discontinue this. - Likely tachycardic from DKA dehydration and tachypnea. Will monitor. 7. Chronic post thoracotomy pain - Chronic issue. 8. HLD - Chronic issue, continue home med 8. HTN - Chronic issue. Will hold home med at this time until patient improving from DKA. 9. Hx CHF with pEF - Monitor patient fluid status. Will adjust fluid if he becomes overloaded. 10. DM2, uncontrolled - Latest A1c elevated. Continue home medication as patient goes off insulin drip. Attending Addendum - Attending Addendum Date/Time: 06/21/18 7835 I personally evaluated the patient and discussed the management with Dr. Tavares. I agree with the History, Examination, Assessment and Plan documented above with any addition or exceptions noted below. 63 y.o. WM with h/o DM2, CAD s/p FL, s/p multiple spinal surgeries and spinal nerve stimulator for chronic neuropathic pain admitted to IMCU for AMS, lethargy , Respiratory failure due to tachypnea requiring BIPAP, AG acidosis possibly due to DKA, Sepsis.
[2018-06-21] MEDS: Sodium Chloride 0.9% 1,000 ML IV PRN ×2 (19:05→21:18)
[2018-06-21] MEDS ORDERED: CCU Electrolyte Replacement 1 EACH IVPB ONE (19:33)
[2018-06-21] MEDS ORDERED: Sodium Chloride 0.9% 1,000 ML IV PRN ×3 (19:33)
[2018-06-21] MEDS ORDERED: NS 0.9% w/ 20 MEQ KCL 1,000 ML IV PRN ×2 (19:33)
[2018-06-21] MEDS ORDERED: D5 1/2 NS w/20 mEq KCL 1,000 ML IV PRN (19:33)
[2018-06-21] MEDS ORDERED: Potassium Phosphate 9 MMOL in Sodium Chloride 0.9% 100 ML IVPB PRN (19:37)
[2018-06-21] MEDS ORDERED: CCU ELECTROLYTE REPLACEMENT PROTOCOL FS PRN (19:37)
[2018-06-21] MEDS ORDERED: Potassium Chloride 20 MEQ TAB PO PRN (19:37)
[2018-06-21] MEDS ORDERED: Potassium Phosphate 12 MMOL in Sodium Chloride 0.9% 250 ML 250 ML IV PRN (19:37)
[2018-06-21] MEDS ORDERED: Potassium Phosphate 15 MMOL in Sodium Chloride 0.9% 250 ML 250 ML IV PRN (19:37)
[2018-06-21] MEDS ORDERED: Magnesium Oxide 400 MG TAB PO PRN ×2 (19:37)
[2018-06-21] MEDS ORDERED: Potassium Chloride 40 MEQ in Sodium Chloride 0.9% 250 ML 250 ML IVPB PRN (19:37)
[2018-06-21] MEDS ORDERED: Potassium Chloride 40 MEQ in Premix Bag 1 BAG IVPB PRN (19:37)
[2018-06-21] MEDS ORDERED: Magnesium 2 GM/NS 0.9% 100 ML 2 GM in Premix Bag 1 BAG IVPB PRN (19:37)
[2018-06-21 19:46] VITALS: BMI 27.8
[2018-06-21] MEDS ORDERED: Ondansetron ODT 4 MG TAB SL PRN (19:46)
[2018-06-21] MEDS ORDERED: Ondansetron HCl/PF 4 MG/2 ML Vial IVP PRN (19:46)
[2018-06-21] MEDS ORDERED: Acetaminophen 325 MG TAB PO PRN (19:46)
[2018-06-21] MEDS ORDERED: HYDROcodone/Acetaminophen 5/325 mg Tablet PO PRN ×2 (19:46)
[2018-06-21 20:04] LABS: Troponin I 0.129 ng/mL (< 0.028)
[2018-06-21 20:08] LABS: BUN (Urea Nitrogen) 29 mg/dL (8.4-25.7); Calc. Creatinine Clearance 56 mL/min (70-130); Calcium 9.5 mg/dL (7.8-10.44); Chloride 112 mmol/L (98-107); Estimated GFR-MDRD 42; Glucose 235 mg/dL (80-115); Potassium 5.1 mmol/L (3.5-5.1); Sodium 139 mmol/L (136-145)
[2018-06-21] MEDS: Sodium Chloride 0.9% 1,000 ML IV SCH ×2 (20:10→23:18)
[2018-06-21 20:19] LABS: Carbon Dioxide Less than 8 mmol/L (23-31)
[2018-06-21 22:55] LABS: BUN (Urea Nitrogen) 30 mg/dL (8.4-25.7); Calc. Creatinine Clearance 64 mL/min (70-130); Calcium 8.1 mg/dL (7.8-10.44); Chloride 118 mmol/L (98-107); Estimated GFR-MDRD 49; Glucose 122 mg/dL (80-115); Potassium 5.2 mmol/L (3.5-5.1); Sodium 139 mmol/L (136-145)
[2018-06-21 22:57] LABS: Carbon Dioxide Less than 8 mmol/L (23-31)
[2018-06-21 23:02] LABS: Troponin I 0.169 ng/mL (< 0.028)
[2018-06-21 23:07] LABS: Actual Bicarbonate (HCO3a) 7.3 mEq/L (22-28); Base Excess (BEa) -20.2 mEq/L (-2.0 to +3.0); Calcium, Ionized 1.28 mmol/L (1.12-1.30); Hemoglobin (Hb) 13.9 g/dL (14.0-18.0); O2 Tension (PaO2) 106.5 mmHg (> 80.0)
[2018-06-21 23:09] LABS: CO2 Tension 22.6 mmHg (35.0-45.0); Puncture Site RRAD; pH, Arterial 7.13 (7.35-7.45)
[2018-06-21] MEDS: Dextrose 5 %-0.45 % NaCl 1,000 ML IV PRN (23:17)
[2018-06-22] MEDS: Piperacillin/Tazobactam 4.5 GM in Sodium Chloride 0.9% 100 ML IVPB SCH ×3 (01:17→16:56)
[2018-06-22 02:02] LABS: Troponin I 0.223 ng/mL (< 0.028)
[2018-06-22 02:14] LABS: BUN (Urea Nitrogen) 30 mg/dL (8.4-25.7); Calc. Creatinine Clearance 64 mL/min (70-130); Calcium 8.6 mg/dL (7.8-10.44); Chloride 117 mmol/L (98-107); Estimated GFR-MDRD 49; Glucose 163 mg/dL (80-115); Potassium 4.9 mmol/L (3.5-5.1); Sodium 140 mmol/L (136-145)
[2018-06-22 02:18] LABS: Carbon Dioxide Less than 8 mmol/L (23-31)
[2018-06-22] MEDS: Sodium Chloride 0.9% 1,000 ML IV SCH ×5 (02:35→21:58)
[2018-06-22] MEDS: Dextrose 5 %-0.45 % NaCl 1,000 ML IV PRN ×2 (03:10→06:45)
[2018-06-22 04:35] LABS: Hemoglobin 13.3 g/dL (14.0-18.0); Lymphocytes 3 % (21-51); MDiff Complete? YES; Mean Corpuscular HGB CONC 31.9 g/dL (32.0-36.0); Mean Corpuscular Hemoglobin 29.9 pg (27.0-31.0); Mean Corpuscular Volume 93.5 fL (78.0-98.0); Mean Platelet Volume 8.4 fL (7.4-10.4); Monocytes 7 % (0-10); Neutrophil 90 % (42-75); PLT Morphology Comment Appears Adequate; Platelet Count 151 thou/uL (130-400); RBC Distribution Width 12.9 % (11.5-14.5); RBC Morphology Normal; Red Blood Cell (RBC) Count 4.45 mill/uL (4.70-6.10); White Blood Cell (WBC) Count 15.6 thou/uL (4.8-10.8)
[2018-06-22 04:49] LABS: Actual Bicarbonate (HCO3a) 11.3 mEq/L (22-28); Base Excess (BEa) -15.6 mEq/L (-2.0 to +3.0); CO2 Tension 30.4 mmHg (35.0-45.0); Calcium, Ionized 1.24 mmol/L (1.12-1.30); Carboxyhemoglobin (COHb) 1.1 gm% (0.0-3.0); Hemoglobin (Hb) 13.2 g/dL (14.0-18.0); O2 Tension (PaO2) 93.8 mmHg (> 80.0); Potassium - ABG Lab 4.17 mmol/L (3.70-5.30)
[2018-06-22 04:51] LABS: Puncture Site RBR; pH, Arterial 7.19 (7.35-7.45)
[2018-06-22 05:57] LABS: Troponin I 0.209 ng/mL (< 0.028)
[2018-06-22 06:04] LABS: BUN (Urea Nitrogen) 29 mg/dL (8.4-25.7); Calc. Creatinine Clearance 62 mL/min (70-130); Calcium 8.4 mg/dL (7.8-10.44); Chloride 117 mmol/L (98-107); Estimated GFR-MDRD 48; Glucose 214 mg/dL (80-115); Potassium 5.1 mmol/L (3.5-5.1); Sodium 137 mmol/L (136-145)
[2018-06-22 06:07] LABS: Carbon Dioxide Less than 8 mmol/L (23-31)
--- NOTE | 2018-06-22 08:20 | PDOC.FM ---
- Subjective Subjective: 63 yo M here with DKA. Pt found to be resting comfortably and in no acute distress. There were no events over night. Pt has no complaints. - Objective MAR Reviewed: Yes Vital Signs & Weight: Vital Signs (12 hours) Temp Pulse Resp BP Pulse Ox 06/22/18 07:24 98.2 F 80 16 102/48 L 98 06/22/18 04:06 98.9 F 80 12 103/47 L 99 06/22/18 00:05 97.8 F 82 17 105/51 L 98 06/21/18 22:21 84 20 94/52 L 100 Weight Weight 88.139 kg I&O: 06/21/18 06/22/18 06/23/18 06:59 06:59 06:59 Intake Total 4041 250 Output Total 1375 Balance 2666 250 Result Diagrams: 06/22/18 03:20 06/22/18 04:53 <Codey Greenfield - Last Filed: 06/22/18 08:18> - Objective Vital Signs & Weight: Vital Signs (12 hours) Temp Pulse Resp BP Pulse Ox 06/22/18 10:51 98.2 F 73 17 101/46 L 95 06/22/18 08:17 98 06/22/18 07:24 98.2 F 80 16 102/48 L 98 06/22/18 04:06 98.9 F 80 12 103/47 L 99 06/22/18 00:05 97.8 F 82 17 105/51 L 98 Weight Weight 88.139 kg I&O: 06/21/18 06/22/18 06/23/18 06:59 06:59 06:59 Intake Total 4041 1000 Output Total 1375 0 Balance 2666 1000 Result Diagrams: 06/22/18 03:20 06/22/18 08:22 <Radames Caceres - Last Filed: 06/22/18 11:17> Phys Exam - Physical Examination Constitutional: NAD HEENT: PERRLA, moist MMs Neck: no nodes, no JVD Respiratory: clear to auscultation bilateral Cardiovascular: RRR, no significant murmur Gastrointestinal: soft, non-tender, no distention Musculoskeletal: no edema Neurological: non-focal, normal sensation, moves all 4 limbs Lymphatic: no nodes Psychiatric: normal affect, A&O x 3 Skin: no rash, normal turgor <Codey Greenfield - Last Filed: 06/22/18 08:18> Dx/Plan (1) Diabetic ketoacidosis associated with type 2 diabetes mellitus Code(s): E11.10 - TYPE 2 DIABETES MELLITUS WITH KETOACIDOSIS WITHOUT COMA Status: Acute (2) Acute kidney injury Code(s): N17.9 - ACUTE KIDNEY FAILURE, UNSPECIFIED Status: Acute (3) Elevated troponin Code(s): R74.8 - ABNORMAL LEVELS OF OTHER SERUM ENZYMES Status: Acute (4) Hyperkalemia Code(s): E87.5 - HYPERKALEMIA Status: Resolved (5) Leukocytosis Code(s): D72.829 - ELEVATED WHITE BLOOD CELL COUNT, UNSPECIFIED Status: Acute (6) DM type 2 (diabetes mellitus, type 2) Status: Chronic Qualifiers: Diabetes mellitus halfway insulin use: with halfway use Diabetes mellitus complication status: without complication Qualified Code(s): E11.9 - Type 2 diabetes mellitus without complications; Z79.4 - senior care (current) use of insulin; Z79.4 - oil heaterman (current) use of insulin; Z79.4 - oil heaterman ( current) use of insulin; Z79.4 - oil heaterman (current) use of insulin (7) Dyslipidemia Code(s): E78.5 - HYPERLIPIDEMIA, UNSPECIFIED Status: Chronic (8) HTN (hypertension) Code(s): I10 - ESSENTIAL (PRIMARY) HYPERTENSION Status: Chronic Qualifiers: Hypertension type: essential hypertension Qualified Code(s): I10 - Essential (primary) hypertension - Plan Plan: DKA - continue DKA protocol. Currently still on insulin drip with D5NS at 250, bicarb is slowly improving - continue q2 BMP until gap starts to close then move to q4 - NPO until off of drip ROSA - baseline Cr around 1 and GFR >60. - Continue to monitor BMP as above Leukocytosis - Improving, however unclear etiology. No obvious infection. Cx pending - Continue abx until cx result. CXR pending Hyperkalemia - resolved Elevated trop - demand related. Down trending HTN - Home meds. currently controlled DM2 - home meds when off of DKA protocol. Dyslipidemia -home meds Dispo: Continue IMCU management until off of drip. Likely move to medicine today. LOS >48 hours <Codey Greenfield - Last Filed: 06/22/18 08:18> Attending Addendum - Attending Addendum Date/Time: 06/22/18 8499 I personally evaluated the patient and discussed the management with Dr. Greenfield. I agree with the History, Examination, Assessment and Plan documented above with any addition or exceptions noted below. Gap has closed. Etiology for drowsiness is being investigated. Likely from persistent metabolic derangement but infection, opioids and metformin use is possible as well. <Radames Caceres - Last Filed: 06/22/18 11:17>
[2018-06-22 08:59] LABS: Anion Gap 12 mmol/L (10-20); BUN (Urea Nitrogen) 25 mg/dL (8.4-25.7); Calc. Creatinine Clearance 66 mL/min (70-130); Carbon Dioxide 12 mmol/L (23-31); Chloride 114 mmol/L (98-107); Estimated GFR-MDRD 51; Glucose 199 mg/dL (80-115); Potassium 4.3 mmol/L (3.5-5.1); Sodium 134 mmol/L (136-145)
[2018-06-22] MEDS ORDERED: Prevnar 13-Val Conj/PF 0.5 ML SYRINGE IM ONE (09:00)
[2018-06-22] MEDS: Enoxaparin Sodium 40 MG/0.4 ML SYRINGE SC SCH (09:20)
--- NOTE | 2018-06-22 10:24 | RAD ---
UPRIGHT PORTABLE CHEST 1 VIEW: HISTORY: A 63-year-old male with a history of sepsis. COMPARISON: 06/21/18. FINDINGS: Monitor leads overlie the chest. Stimulator leads again noted overlying the upper thoracic vertebral column.. Increased linear and interstitial markings bilaterally. No confluent pneumonia or overt e praveena. IMPRESSION: No acute intrathoracic disease. Stable increased markings bilaterally. Stable from 06/21/18. POS: [facility]
[2018-06-22] MEDS ORDERED: Nitroglycerin 0.4 MG TAB (25 Tab Bottle) SL PRN (10:45)
[2018-06-22 11:35] LABS: Anion Gap 14 mmol/L (10-20); BUN (Urea Nitrogen) 23 mg/dL (8.4-25.7); Calc. Creatinine Clearance 69 mL/min (70-130); Calcium 8.2 mg/dL (7.8-10.44); Carbon Dioxide 9 mmol/L (23-31); Chloride 117 mmol/L (98-107); Estimated GFR-MDRD 54; Glucose 200 mg/dL (80-115); Potassium 4.6 mmol/L (3.5-5.1); Sodium 135 mmol/L (136-145)
[2018-06-22] MEDS ORDERED: Insulin Regular 300 UNITS/3 ML VIAL SC SCH (12:20)
[2018-06-22 12:27] LABS: Anion Gap 12 mmol/L (10-20); BUN (Urea Nitrogen) 24 mg/dL (8.4-25.7); Calc. Creatinine Clearance 63 mL/min (70-130); Calcium 8.1 mg/dL (7.8-10.44); Carbon Dioxide 15 mmol/L (23-31); Chloride 114 mmol/L (98-107); Estimated GFR-MDRD 49; Glucose 191 mg/dL (80-115); Potassium 4.5 mmol/L (3.5-5.1); Sodium 136 mmol/L (136-145)
[2018-06-22] MEDS ORDERED: Insulin Glargine 10 UNITS in Pre-Filled Syringe 1 EACH SC SCH (13:30)
--- NOTE | 2018-06-22 14:58 | PQF ---
DATE: 06-22-18 ATTN: DR. TANISHA FUNEZ Please exercise your independent, professional judgment in responding to the clarification form. Clinical indicators are provided on the bottom of this form for your review Please check appropriate box(s) to clarify if the following diagnosis has been ruled in or ruled out: SEPSIS [ ] Ruled in diagnosis [ ] Continue to treat [ ] Resolved [ ] Ruled out diagnosis [ ] Other diagnosis [ x ] Unable to determine In addition, please specify: Present on Admission (POA): [ x ] Yes [ ] No [ ] Unable to determine For continuity of documentation, please document condition throughout progress notes and discharge summary. Thank You. CLINICAL INDICATORS - SIGNS / SYMPTOMS / LABS H&P: ACUTE LEUKOCYTOSIS, POSSIBLE INDICATION OF INFECTION, ADMITTED TO IMCU FOR AMS, RESPIRATORY FAILURE DUE TO TACHYPNEA REQUIRING BIPAP, AG ACIDOSIS POSSIBLY DUE TO DKA, SEPSIS PN DR. FUNEZ 06-22-18: ETIOLOGY FOR DROWSINESS IS BEING EVALUATED. LIKELY FROM PERSISTENT METABOLIC DERANGEMENT BUT INFECTION, OPIOIDS AND METFORMIN USE IS POSSIBLE WELL. WBC: 06-21-18: 20.4 06-22-18: 15.6 PULSE: 06-21-18: 103 ER: 129, 137, 125, 121, 115, 106 RR: ER: 37, 27, 29, 28, 30, 28 RISK FACTORS: H&P: AMS, LETHARGY, HX OF DYSLIPIDEMIA, HTN, DM, IN WITH DKA TREATMENTS: MAR: IVF, ZOSYN (This form is maintained as a part of the permanent medical record) 2014 [employer] All Rights Reserved [email or web address] [email or web address] Office: [phone] [facility]STCHESTERBecky
[2018-06-22 16:46] LABS: Anion Gap 13 mmol/L (10-20); BUN (Urea Nitrogen) 19 mg/dL (8.4-25.7); Calc. Creatinine Clearance 77 mL/min (70-130); Calcium 8.5 mg/dL (7.8-10.44); Carbon Dioxide 12 mmol/L (23-31); Chloride 115 mmol/L (98-107); Estimated GFR-MDRD 61; Glucose 168 mg/dL (80-115); Sodium 136 mmol/L (136-145)
[2018-06-22 20:39] LABS: Anion Gap 17 mmol/L (10-20); BUN (Urea Nitrogen) 19 mg/dL (8.4-25.7); Calc. Creatinine Clearance 70 mL/min (70-130); Calcium 8.3 mg/dL (7.8-10.44); Carbon Dioxide 11 mmol/L (23-31); Chloride 116 mmol/L (98-107); Estimated GFR-MDRD 54; Glucose 143 mg/dL (80-115); Potassium 4.9 mmol/L (3.5-5.1); Sodium 139 mmol/L (136-145)
[2018-06-22] MEDS ORDERED: Non-Formulary Item 1 EACH (Atorvastatin Calcium [Atorvastatin Calcium] 80 MG) PO SCH (21:00)
[2018-06-22] MEDS: DULoxetine 60 MG CAP PO SCH (21:02)
[2018-06-22] MEDS: Atorvastatin Calcium 40 MG TAB PO SCH (21:02)
[2018-06-23 00:52] LABS: Anion Gap 14 mmol/L (10-20); BUN (Urea Nitrogen) 17 mg/dL (8.4-25.7); Calc. Creatinine Clearance 77 mL/min (70-130); Calcium 8.6 mg/dL (7.8-10.44); Carbon Dioxide 14 mmol/L (23-31); Chloride 115 mmol/L (98-107); Estimated GFR-MDRD 61; Glucose 170 mg/dL (80-115); Potassium 3.8 mmol/L (3.5-5.1); Sodium 139 mmol/L (136-145)
[2018-06-23] MEDS: Piperacillin/Tazobactam 4.5 GM in Sodium Chloride 0.9% 100 ML IVPB SCH ×3 (01:27→17:27)
--- NOTE | 2018-06-23 02:06 | CON ---
DATE OF CONSULTATION: 06/22/2018 HISTORY OF PRESENT ILLNESS: Cristina Fitzgerald is a 63-year-old male with diabetes for many years. He has diabetic retinopathy. He presented yesterday evening and was admitted with metabolic acidosis. Apparently, he was tachypneic and had a fluctuating mental status for several days and was transferred here for further workup. According to the , much more alert today than he was yesterday. PAST MEDICAL HISTORY: Remarkable for admission here in September with an ST elevation myocardial infarction, he went to the optical laboratory manager with Dr. Gallardo. I saw him that admission as well. He had placement of a stent and was successfully discharged back to his home environment. Past medical history is otherwise remarkable for cholecystectomy, multiple back surgeries, hypertension and chronic back pain. SOCIAL HISTORY: He is a nonsmoker, nondrinker. He uses no drugs. ALLERGIES: He does not have any drug allergies. FAMILY HISTORY: Positive for vascular disease. REVIEW OF SYSTEMS: Ten-point review of systems according to his is otherwise negative. He is unable to give a review of systems. PHYSICAL EXAMINATION: VITAL SIGNS: Afebrile, heart rate 73, respiratory rate 17, oximetry is 95, and blood pressure is 101/46. HEENT: Pupils react. Sclerae is anicteric. Extraocular movements are full. NECK: Supple. LUNGS: Clear. HEART: Regular rhythm. S1 and S2 are normal. No murmur. ABDOMEN: Soft and nontender. EXTREMITIES: No clubbing, cyanosis, or edema. LABORATORY DATA: White count 15.6, hemoglobin 13.3, platelets 151. Sodium 136 , potassium 4.5, chloride 114, bicarbonate 15, BUN 24, creatinine 1.45. IMPRESSION: Severe metabolic acidosis on presentation with bicarbonate less than 8 and a pH of 7.12, CO2 of 10 on blood gas. He has been treated with insulin and IV fluids and is clinically improved. His acid base disorder was switched to more of a hyperchloremic acidosis at this point in time. Appears to be improving slowly and follow with the other physicians. This is a 50-minute consult greater than 50% of the time was spent on the unit coordinating care. MAURY
[2018-06-23 05:15] LABS: Anion Gap 15 mmol/L (10-20); BUN (Urea Nitrogen) 17 mg/dL (8.4-25.7); Calc. Creatinine Clearance 85 mL/min (70-130); Calcium 8.6 mg/dL (7.8-10.44); Carbon Dioxide 13 mmol/L (23-31); Chloride 114 mmol/L (98-107); Estimated GFR-MDRD 69; Glucose 158 mg/dL (80-115); Sodium 138 mmol/L (136-145)
[2018-06-23 06:19] LABS: #Monocytes 0.5 thou/uL (0.11-0.59); #Neutrophils 7.1 thou/uL (1.40-6.50); %Basophils 0.4 % (0.0-1.0); %Eosinophils 0.3 % (0.0-10.0); %Lymphocytes 11.4 % (21.0-51.0); %Monocytes 5.8 % (0.0-10.0); %Neutrophils 82.2 % (42.0-75.0); Hemoglobin 12.7 g/dL (14.0-18.0); Mean Corpuscular HGB CONC 32.2 g/dL (32.0-36.0); Mean Corpuscular Hemoglobin 30.1 pg (27.0-31.0); Mean Corpuscular Volume 93.6 fL (78.0-98.0); Mean Platelet Volume 8.2 fL (7.4-10.4); Platelet Count 155 thou/uL (130-400); Red Blood Cell (RBC) Count 4.22 mill/uL (4.70-6.10); White Blood Cell (WBC) Count 8.7 thou/uL (4.8-10.8)
[2018-06-23] MEDS ORDERED: Dextrose 5% in Water 1,000 ML IV PRN (08:31)
[2018-06-23] MEDS ORDERED: HumaLOG 300 UNITS/3 ML VIAL SC PRN (08:31)
[2018-06-23] MEDS ORDERED: Dextrose 50% Abboject 50 ML SYRINGE SLOW IVP PRN (08:31)
--- NOTE | 2018-06-23 08:33 | PDOC.FM ---
- Subjective Subjective: Pt found resting comfortably in bed this morning. He states that he is feeling better today and has no specific complaints. Per nursing there were no acute events over night. - Objective MAR Reviewed: Yes Vital Signs & Weight: Vital Signs (12 hours) Temp Pulse Resp BP Pulse Ox 06/23/18 07:32 97.9 F 92 17 124/66 97 06/23/18 04:22 97.6 F 81 15 116/55 L 97 06/23/18 02:40 97 06/23/18 00:15 98.6 F 97 15 102/43 L 96 Weight Admit Weight 88.139 kg Weight 88.139 kg I&O: 06/22/18 06/23/18 06/24/18 06:59 06:59 06:59 Intake Total 4041 2100 Output Total 1375 3225 Balance 0776 -4575 Result Diagrams: 06/23/18 03:40 06/23/18 03:40 Phys Exam - Physical Examination Constitutional: NAD HEENT: PERRLA, moist MMs Neck: no nodes, no JVD Respiratory: clear to auscultation bilateral Cardiovascular: RRR 2/6 systolic murmur that radiates to R carotid Gastrointestinal: soft, non-tender, no distention Musculoskeletal: no edema Neurological: non-focal, normal sensation, moves all 4 limbs Lymphatic: no nodes Psychiatric: normal affect, A&O x 3 Skin: no rash Dx/Plan (1) Diabetic ketoacidosis associated with type 2 diabetes mellitus Code(s): E11.10 - TYPE 2 DIABETES MELLITUS WITH KETOACIDOSIS WITHOUT COMA Status: Resolved (2) Acute kidney injury Code(s): N17.9 - ACUTE KIDNEY FAILURE, UNSPECIFIED Status: Resolved (3) Elevated troponin Code(s): R74.8 - ABNORMAL LEVELS OF OTHER SERUM ENZYMES Status: Acute (4) Hyperkalemia Code(s): E87.5 - HYPERKALEMIA Status: Resolved (5) Leukocytosis Code(s): D72.829 - ELEVATED WHITE BLOOD CELL COUNT, UNSPECIFIED Status: Acute (6) DM type 2 (diabetes mellitus, type 2) Status: Chronic Qualifiers: Diabetes mellitus intermediate accountant insulin use: with intermediate accountant use Diabetes mellitus complication status: without complication Qualified Code(s): E11.9 - Type 2 diabetes mellitus without complications; Z79.4 - assistant terminal manager (current) use of insulin; Z79.4 - assistant terminal manager (current) use of insulin; Z79.4 - penitentiary ( current) use of insulin; Z79.4 - assistant terminal manager (current) use of insulin (7) Dyslipidemia Code(s): E78.5 - HYPERLIPIDEMIA, UNSPECIFIED Status: Chronic (8) HTN (hypertension) Code(s): I10 - ESSENTIAL (PRIMARY) HYPERTENSION Status: Chronic Qualifiers: Hypertension type: essential hypertension Qualified Code(s): I10 - Essential (primary) hypertension (9) Systolic murmur Code(s): R01.1 - CARDIAC MURMUR, UNSPECIFIED Status: Acute - Plan Plan: Systolic murmur - incidental finding. Pt sees Dr Gallardo for cardiology. No echo in our system , consider echo today vs outpt. DKA, resolved - pt off of drip and back onto home meds. Continue to monitor bg ACHS and cover with mild SSI - started diet yesterday afternoon. Tolerating well. No episodes of glucose over 200 in the past 24 hours ROSA, resolved - Continue to monitor BMP as above Leukocytosis, resolved - Continue abx until cx result. This is most likely not infectious in etiology Hyperkalemia - resolved Elevated trop - demand related. Down trending HTN - Home meds. currently controlled DM2 - home meds when off of DKA protocol. Dyslipidemia -home meds Dispo: Transfer to tele. Likely ready to dc tomorrow
[2018-06-23] MEDS: Insulin Glargine 35 UNITS in Pre-Filled Syringe 1 EACH SC SCH (08:57)
[2018-06-23] MEDS: Metoprolol Tartrate 50 MG TAB PO SCH (08:58)
[2018-06-23] MEDS: Ezetimibe 10 MG TAB PO SCH (08:58)
[2018-06-23] MEDS: Enoxaparin Sodium 40 MG/0.4 ML SYRINGE SC SCH (08:58)
[2018-06-23] MEDS: Lisinopril 2.5 MG TAB PO SCH (08:59)
[2018-06-23] MEDS: DULoxetine 60 MG CAP PO SCH ×2 (08:59→20:58)
[2018-06-23] MEDS ORDERED: Non-Formulary Item 1 EACH (Empagliflozin [Jardiance] 25 MG) PO SCH (09:00)
--- NOTE | 2018-06-23 12:54 | ADD-PRG ---
ADDENDUM DATE OF SERVICE: 06/23/2018 Please add to note of Dr. Greenfield. SUBJECTIVE: Mr. Fitzgerald is a quiet, pleasant 63-year-old man with type 2 diabetes. He was admitted in diabetic ketoacidosis as evidenced by an arterial pH of 7.12, pCO2 of 10.2. His admission, bicarbon ate was less than 8. Sodium 140, potassium 4.9, chloride 117, glucose was 200. He had not been feel ing well for several days. He has been placed on fluids and an insulin infusion and already this mor renée looks and feels much better. He is much less confused than yesterday. We can likely transfer h im later today to the regular floor.
--- NOTE | 2018-06-23 14:30 | PRG ---
DATE OF SERVICE: 06/23/2018 SUBJECTIVE: Cristina Fitzgerald is much more alert today. OBJECTIVE: VITAL SIGNS: His heart rates in the 60s, afebrile, respiratory rate 16, oximetry is 98 on room air, blood pressure 114/60. LUNGS: Clear. HEART: Regular rhythm. ABDOMEN: Soft. LABORATORY DATA: White count 8.7, hemoglobin 12.7, platelets 155,000. Sodium 138, potassium 4, chloride is down to 114, BUN 17, creatinine 1.08. One blood culture is negative. One has a gram-positive cocci, now growing, this may be a contaminant. IMPRESSION: 1. Severe metabolic acidosis, resolving. 2. Underlying diabetes. 3. Deconditioning. 4. Metabolic encephalopathy that is improving. 5. History of coronary disease with ST elevation myocardial infarction in the past requiring emergent stent placement. He was scheduled to move out of Intermediate Care Unit. We will follow from a distance. MAURY
[2018-06-23] MEDS: Atorvastatin Calcium 40 MG TAB PO SCH (20:58)
[2018-06-24] MEDS: Piperacillin/Tazobactam 4.5 GM in Sodium Chloride 0.9% 100 ML IVPB SCH (00:44)
[2018-06-24 04:28] LABS: Anion Gap 18 mmol/L (10-20); BUN (Urea Nitrogen) 18 mg/dL (8.4-25.7); Calc. Creatinine Clearance 88 mL/min (70-130); Calcium 8.2 mg/dL (7.8-10.44); Carbon Dioxide 14 mmol/L (23-31); Chloride 110 mmol/L (98-107); Estimated GFR-MDRD 72; Glucose 117 mg/dL (80-115); Potassium 3.6 mmol/L (3.5-5.1); Sodium 138 mmol/L (136-145)
--- NOTE | 2018-06-24 08:37 | PDOC.FM ---
- Subjective Subjective: 63 yo M admitted for DKA. Doing well this am, states that he feels like he is back to normal. His only complaint is regarding his chronic back pain for which he typically takes MS Contin - Objective MAR Reviewed: Yes Vital Signs & Weight: Vital Signs (12 hours) Temp Pulse Resp BP Pulse Ox 06/24/18 07:40 98.0 F 89 18 132/87 97 06/24/18 04:00 97.9 F 87 18 121/72 99 06/24/18 00:00 97.8 F 87 18 125/53 L 99 Weight Admit Weight 88.139 kg Weight 88.088 kg I&O: 06/23/18 06/24/18 06/25/18 06:59 06:59 06:59 Intake Total 2100 1969 Output Total 3223 3271 Balance -1124 -7763 Result Diagrams: 06/23/18 03:40 06/24/18 03:37 <Codey Greenfield - Last Filed: 06/24/18 08:35> - Objective Vital Signs & Weight: Vital Signs (12 hours) Temp Pulse Resp BP BP Pulse Ox 06/25/18 08:40 72 06/25/18 07:32 131/77 06/25/18 05:01 98.5 F 72 20 146/74 H 93 L 06/25/18 00:00 97.7 F 77 20 119/70 95 Weight Admit Weight 88.139 kg Weight 88.088 kg I&O: 06/24/18 06/25/18 06/26/18 06:59 06:59 06:59 Intake Total 1969 178 Output Total 3277 7732 Balance -1303 -893 Result Diagrams: 06/23/18 03:40 06/25/18 04:35 <Radames Caceres - Last Filed: 06/25/18 09:09> Phys Exam - Physical Examination Constitutional: NAD HEENT: PERRLA, moist MMs Neck: no nodes, no JVD Respiratory: clear to auscultation bilateral Cardiovascular: RRR, no significant murmur Gastrointestinal: soft, non-tender, no distention, positive bowel sounds Musculoskeletal: no edema, pulses present Neurological: non-focal, normal sensation, moves all 4 limbs Psychiatric: normal affect, A&O x 3 Skin: no rash, normal turgor, cap refill <2 seconds <Codey Greenfield - Last Filed: 06/24/18 08:35> Dx/Plan (2) Diabetic ketoacidosis associated with type 2 diabetes mellitus Code(s): E11.10 - TYPE 2 DIABETES MELLITUS WITH KETOACIDOSIS WITHOUT COMA Status: Resolved (3) Acute kidney injury Code(s): N17.9 - ACUTE KIDNEY FAILURE, UNSPECIFIED Status: Resolved (4) Elevated troponin Code(s): R74.8 - ABNORMAL LEVELS OF OTHER SERUM ENZYMES Status: Acute (5) Hyperkalemia Code(s): E87.5 - HYPERKALEMIA Status: Resolved (6) Leukocytosis Code(s): D72.829 - ELEVATED WHITE BLOOD CELL COUNT, UNSPECIFIED Status: Acute (7) DM type 2 (diabetes mellitus, type 2) Status: Chronic Qualifiers: Diabetes mellitus terminal block assembler insulin use: with prison use Diabetes mellitus complication status: without complication Qualified Code(s): E11.9 - Type 2 diabetes mellitus without complications; Z79.4 - intermodal dispatcher (current) use of insulin; Z79.4 - intermodal dispatcher (current) use of insulin; Z79.4 - [facility] ( current) use of insulin; Z79.4 - intermodal dispatcher (current) use of insulin (8) Dyslipidemia Code(s): E78.5 - HYPERLIPIDEMIA, UNSPECIFIED Status: Chronic (9) HTN (hypertension) Code(s): I10 - ESSENTIAL (PRIMARY) HYPERTENSION Status: Chronic Qualifiers: Hypertension type: essential hypertension Qualified Code(s): I10 - Essential (primary) hypertension (10) Systolic murmur Code(s): R01.1 - CARDIAC MURMUR, UNSPECIFIED Status: Acute - Plan Plan: Systolic murmur - incidental finding. Pt sees Dr Gallardo for cardiology. No echo in our system , will get one done while here. DKA, resolved - pt off of drip and back onto home meds. Continue to monitor bg ACHS and cover with mild SSI - hold home SLGT due to association with DKA ROSA, resolved - Continue to monitor BMP as above Leukocytosis, resolved - Cx negative other than coag neg staph. Likely contaminant Hyperkalemia - resolved Elevated trop - demand related. Down trending HTN - Home meds. currently controlled DM2 - home meds when off of DKA protocol. Dyslipidemia -home meds Chronic back pain - start home meds Dispo: Transfer to tele. Ready to DC <Codey Greenfield - Last Filed: 06/24/18 08:35> Attending Addendum - Attending Addendum Date/Time: 06/25/18 0909 I personally evaluated the patient and discussed the management with Dr. Greenfield yesterday. I agree with the History, Examination, Assessment and Plan documented above with any addition or exceptions noted below. <Radames Caceres - Last Filed: 06/25/18 09:09>
[2018-06-24] MEDS: Insulin Glargine 35 UNITS in Pre-Filled Syringe 1 EACH SC SCH (09:33)
[2018-06-24] MEDS: Ezetimibe 10 MG TAB PO SCH (09:34)
[2018-06-24] MEDS: Enoxaparin Sodium 40 MG/0.4 ML SYRINGE SC SCH (09:34)
[2018-06-24] MEDS: DULoxetine 60 MG CAP PO SCH ×2 (09:34→20:27)
[2018-06-24] MEDS: Metoprolol Tartrate 50 MG TAB PO SCH (09:35)
[2018-06-24] MEDS: Lisinopril 2.5 MG TAB PO SCH (09:35)
[2018-06-24] MEDS: HumaLOG 300 UNITS/3 ML VIAL SC PRN (11:42)
[2018-06-24] MEDS: Atorvastatin Calcium 40 MG TAB PO SCH (20:27)
[2018-06-25 05:27] LABS: Anion Gap 20 mmol/L (10-20); BUN (Urea Nitrogen) 14 mg/dL (8.4-25.7); Calc. Creatinine Clearance 89 mL/min (70-130); Calcium 8.6 mg/dL (7.8-10.44); Carbon Dioxide 11 mmol/L (23-31); Chloride 108 mmol/L (98-107); Estimated GFR-MDRD 72; Glucose 112 mg/dL (80-115); Potassium 4.3 mmol/L (3.5-5.1); Sodium 135 mmol/L (136-145)
[2018-06-25] MEDS: Insulin Glargine 35 UNITS in Pre-Filled Syringe 1 EACH SC SCH (08:40)
[2018-06-25] MEDS: Ezetimibe 10 MG TAB PO SCH (08:40)
[2018-06-25] MEDS: Enoxaparin Sodium 40 MG/0.4 ML SYRINGE SC SCH (08:40)
[2018-06-25] MEDS: Lisinopril 2.5 MG TAB PO SCH (08:40)
[2018-06-25] MEDS: Metoprolol Tartrate 50 MG TAB PO SCH (08:40)
[2018-06-25] MEDS: DULoxetine 60 MG CAP PO SCH ×2 (08:40→20:45)
--- NOTE | 2018-06-25 08:50 | PDOC.FM ---
- Subjective Subjective: Pt seen at bedside this am finishing OT for the morning. He states that other than mild nausea after eating last night he has no specific complaints and now new symptoms have onset. - Objective MAR Reviewed: Yes Vital Signs & Weight: Vital Signs (12 hours) Temp Pulse Resp BP BP Pulse Ox 06/25/18 08:40 72 06/25/18 07:32 131/77 06/25/18 05:01 98.5 F 72 20 146/74 H 93 L 06/25/18 00:00 97.7 F 77 20 119/70 95 Weight Admit Weight 88.139 kg Weight 88.088 kg I&O: 06/24/18 06/25/18 06/26/18 06:59 06:59 06:59 Intake Total 1969 1779 Output Total 3275 4715 Balance -1305 -645 Result Diagrams: 06/23/18 03:40 06/25/18 04:35 <Codey Greenfield - Last Filed: 06/25/18 08:49> - Objective Vital Signs & Weight: Vital Signs (12 hours) Temp Pulse Resp BP BP Pulse Ox 06/25/18 08:40 72 06/25/18 08:00 98.7 F 79 18 131/77 97 06/25/18 07:32 131/77 06/25/18 05:01 98.5 F 72 20 146/74 H 93 L Weight Admit Weight 88.139 kg Weight 88.088 kg I&O: 06/24/18 06/25/18 06/26/18 06:59 06:59 06:59 Intake Total 1969 1779 Output Total 3275 5755 Balance -1305 -495 Result Diagrams: 06/23/18 03:40 06/25/18 04:35 <Radames Caceres - Last Filed: 06/25/18 13:43> Phys Exam - Physical Examination Constitutional: NAD HEENT: PERRLA, moist MMs Neck: no nodes, no JVD Respiratory: clear to auscultation bilateral Cardiovascular: RRR 2/6 systolic murmur with R carotid radiation Gastrointestinal: soft, non-tender, no distention Musculoskeletal: no edema, pulses present Neurological: non-focal, normal sensation, moves all 4 limbs Psychiatric: normal affect, A&O x 3 Skin: no rash, normal turgor <Codey Greenfield Filed: 06/25/18 08:49> Dx/Plan (1) Physical deconditioning Code(s): R53.81 - OTHER MALAISE Status: Acute (2) Diabetic ketoacidosis associated with type 2 diabetes mellitus Code(s): E11.10 - TYPE 2 DIABETES MELLITUS WITH KETOACIDOSIS WITHOUT COMA Status: Resolved (3) Acute kidney injury Code(s): N17.9 - ACUTE KIDNEY FAILURE, UNSPECIFIED Status: Resolved (4) Elevated troponin Code(s): R74.8 - ABNORMAL LEVELS OF OTHER SERUM ENZYMES Status: Acute (5) Hyperkalemia Code(s): E87.5 - HYPERKALEMIA Status: Resolved (6) Leukocytosis Code(s): D72.829 - ELEVATED WHITE BLOOD CELL COUNT, UNSPECIFIED Status: Acute (7) DM type 2 (diabetes mellitus, type 2) Status: Chronic Qualifiers: Diabetes mellitus ferry terminal supervisor insulin use: with ferry terminal supervisor use Diabetes mellitus complication status: without complication Qualified Code(s): E11.9 - Type 2 diabetes mellitus without complications; Z79.4 - half-way (current) use of insulin; Z79.4 - half-way (current) use of insulin; Z79.4 - local company intermodal truck driver ( current) use of insulin; Z79.4 - local company intermodal truck driver (current) use of insulin (8) Dyslipidemia Code(s): E78.5 - HYPERLIPIDEMIA, UNSPECIFIED Status: Chronic (9) HTN (hypertension) Code(s): I10 - ESSENTIAL (PRIMARY) HYPERTENSION Status: Chronic Qualifiers: Hypertension type: essential hypertension Qualified Code(s): I10 - Essential (primary) hypertension (10) Systolic murmur Code(s): R01.1 - CARDIAC MURMUR, UNSPECIFIED Status: Acute - Plan Plan: Physical deconditioning - Consult for placement in rehab pending Systolic murmur - incidental finding. Echo read pending. Pt is asymptomatic DKA, resolved - pt off of drip and back onto home meds. Continue to monitor bg ACHS and cover with mild SSI - hold home SLGT2 due to association with DKA ROSA, resolved - Continue to monitor BMP as above Leukocytosis, resolved - Cx negative other than coag neg staph. Likely contaminant Hyperkalemia - resolved Elevated trop - demand related. Down trending HTN - Home meds. currently controlled DM2 - home meds with exception of SGLT2 Dyslipidemia -home meds Chronic back pain - start home meds Dispo: Ready to DC <Codey Greenfield - Last Filed: 06/25/18 08:49> Attending Addendum - Attending Addendum Date/Time: 06/25/18 0458 I personally evaluated the patient and discussed the management with Dr. Greenfield. I agree with the History, Examination, Assessment and Plan documented above with any addition or exceptions noted below. <Radames Caceres - Last Filed: 06/25/18 13:43>
[2018-06-25] MEDS: Morphine ER 30 MG TAB PO SCH (20:46)
[2018-06-25] MEDS: Atorvastatin Calcium 40 MG TAB PO SCH (20:46)
[2018-06-26 05:03] LABS: Anion Gap 13 mmol/L (10-20); BUN (Urea Nitrogen) 11 mg/dL (8.4-25.7); Calc. Creatinine Clearance 116 mL/min (70-130); Calcium 8.3 mg/dL (7.8-10.44); Carbon Dioxide 20 mmol/L (23-31); Chloride 106 mmol/L (98-107); Estimated GFR-MDRD Greater than 90; Glucose 68 mg/dL (80-115); Sodium 136 mmol/L (136-145)
[2018-06-26 05:12] LABS: Potassium 2.7 mmol/L (3.5-5.1)
--- NOTE | 2018-06-26 08:36 | PDOC.FM ---
- Subjective Subjective: Pt seen this am at bedside. Doing well with no specific complaints. He is excited for rehab. Overnight a K of 2.7 was reported, this was replaced PO. Otherwise no issues over night and no new complaints. - Objective Vital Signs & Weight: Vital Signs (12 hours) Temp Pulse Resp BP BP Pulse Ox 06/26/18 07:35 97.4 F L 64 16 128/71 97 06/26/18 04:21 97.9 F 76 18 117/68 96 06/26/18 00:00 98 F 72 18 115/68 95 Weight Admit Weight 88.139 kg Weight 88.088 kg I&O: 06/25/18 06/26/18 06/27/18 06:59 06:59 06:59 Intake Total 1780 Output Total 2275 Balance -495 Result Diagrams: 06/23/18 03:40 06/26/18 03:46 <Codey Greenfield - Last Filed: 06/26/18 08:34> - Objective Vital Signs & Weight: Vital Signs (12 hours) Temp Pulse Resp BP BP Pulse Ox 06/26/18 07:35 97.4 F L 64 16 128/71 97 06/26/18 04:21 97.9 F 76 18 117/68 96 06/26/18 00:00 98 F 72 18 115/68 95 Weight Admit Weight 88.139 kg Weight 88.088 kg I&O: 06/25/18 06/26/18 06/27/18 06:59 06:59 06:59 Intake Total 1780 Output Total 2275 Balance -495 Result Diagrams: 06/23/18 03:40 06/26/18 03:46 <Radames Caceres - Last Filed: 06/26/18 09:53> Phys Exam - Physical Examination HEENT: PERRLA, moist MMs Neck: no nodes, no JVD Respiratory: clear to auscultation bilateral Cardiovascular: RRR 2/6 systolic murmur Gastrointestinal: soft, non-tender, no distention Musculoskeletal: no edema Neurological: non-focal, normal sensation, moves all 4 limbs Psychiatric: normal affect, A&O x 3 Skin: no rash <Codey Greenfield - Last Filed: 06/26/18 08:34> Dx/Plan (1) Physical deconditioning Code(s): R53.81 - OTHER MALAISE Status: Acute (2) Diabetic ketoacidosis associated with type 2 diabetes mellitus Code(s): E11.10 - TYPE 2 DIABETES MELLITUS WITH KETOACIDOSIS WITHOUT COMA Status: Resolved (3) Acute kidney injury Code(s): N17.9 - ACUTE KIDNEY FAILURE, UNSPECIFIED Status: Resolved (4) Elevated troponin Code(s): R74.8 - ABNORMAL LEVELS OF OTHER SERUM ENZYMES Status: Acute (5) Hyperkalemia Code(s): E87.5 - HYPERKALEMIA Status: Resolved (6) Leukocytosis Code(s): D72.829 - ELEVATED WHITE BLOOD CELL COUNT, UNSPECIFIED Status: Acute (7) DM type 2 (diabetes mellitus, type 2) Status: Chronic Qualifiers: Diabetes mellitus termite inspector insulin use: with termite inspector use Diabetes mellitus complication status: without complication Qualified Code(s): E11.9 - Type 2 diabetes mellitus without complications; Z79.4 - termination clerk (current) use of insulin; Z79.4 - termination clerk (current) use of insulin; Z79.4 - jail ( current) use of insulin; Z79.4 - termination clerk (current) use of insulin (8) Dyslipidemia Code(s): E78.5 - HYPERLIPIDEMIA, UNSPECIFIED Status: Chronic (9) HTN (hypertension) Code(s): I10 - ESSENTIAL (PRIMARY) HYPERTENSION Status: Chronic Qualifiers: Hypertension type: essential hypertension Qualified Code(s): I10 - Essential (primary) hypertension (10) Systolic murmur Code(s): R01.1 - CARDIAC MURMUR, UNSPECIFIED Status: Acute - Plan Plan: Hypokalemia - replaced PO this am. Plan to give 80 more meq over the course of the day. Recheck this afternoon prior to dc Physical deconditioning - Consult for placement in rehab pending, will likely be ready to go to inpatient facility this afternoon Systolic murmur - incidental finding. Echo finds diastolic dysfunction with mild MR and TR. DKA, resolved - pt off of drip and back onto home meds. Continue to monitor bg ACHS and cover with mild SSI - hold home SLGT2 due to association with DKA ROSA, resolved - Continue to monitor BMP as above Leukocytosis, resolved - Cx negative other than coag neg staph. Likely contaminant Hyperkalemia - resolved Elevated trop - demand related. Down trending HTN - Home meds. currently controlled DM2 - home meds with exception of SGLT2 Dyslipidemia -home meds Chronic back pain - start home meds Dispo: Ready to DC when rehab facility has a bed <Codey Greenfield - Last Filed: 06/26/18 08:34> Attending Addendum - Attending Addendum Date/Time: 06/26/18 0953 I personally evaluated the patient and discussed the management with Dr. Greenfield. I agree with the History, Examination, Assessment and Plan documented above with any addition or exceptions noted below. <Radames Caceres - Last Filed: 06/26/18 09:53>
[2018-06-26] MEDS ORDERED: Potassium Chloride 20 MEQ TAB PO SCH (09:00)
[2018-06-26] MEDS: Potassium Chloride 20 MEQ TAB PO SCH ×2 (09:48→14:53)
[2018-06-26] MEDS: Lisinopril 2.5 MG TAB PO SCH (09:48)
[2018-06-26] MEDS: Ezetimibe 10 MG TAB PO SCH (09:48)
[2018-06-26] MEDS: Morphine ER 30 MG TAB PO SCH ×2 (09:48→21:07)
[2018-06-26] MEDS: DULoxetine 60 MG CAP PO SCH ×2 (09:48→21:07)
[2018-06-26] MEDS: Metoprolol Tartrate 50 MG TAB PO SCH (09:49)
[2018-06-26] MEDS: Enoxaparin Sodium 40 MG/0.4 ML SYRINGE SC SCH (09:49)
[2018-06-26] MEDS: Insulin Glargine 35 UNITS in Pre-Filled Syringe 1 EACH SC SCH (09:49)
[2018-06-26] MEDS: Magnesium Chloride 64 MG TAB PO SCH ×2 (10:23→21:07)
[2018-06-26 16:18] LABS: Potassium 3.9 mmol/L (3.5-5.1)
[2018-06-26] MEDS: Atorvastatin Calcium 40 MG TAB PO SCH (21:07)
[2018-06-27 05:30] LABS: Anion Gap 10 mmol/L (10-20); BUN (Urea Nitrogen) 10 mg/dL (8.4-25.7); Calc. Creatinine Clearance 129 mL/min (70-130); Calcium 8.4 mg/dL (7.8-10.44); Carbon Dioxide 25 mmol/L (23-31); Chloride 106 mmol/L (98-107); Estimated GFR-MDRD Greater than 90; Glucose 85 mg/dL (80-115); Potassium 3.8 mmol/L (3.5-5.1); Sodium 137 mmol/L (136-145)
--- NOTE | 2018-06-27 07:05 | PDOC.FM ---
- Subjective Subjective: Pt seen at bedside this am. He is sitting and playing a game on his phone. Pt states that he feels better and stronger this am. No complaints at this time. No acute events over night - Objective Vital Signs & Weight: Vital Signs (12 hours) Temp Pulse Resp BP Pulse Ox 06/26/18 19:58 97.9 F 62 16 103/62 93 L 06/26/18 19:40 93 L Weight Admit Weight 88.139 kg Weight 88.088 kg I&O: 06/26/18 06/27/18 06/28/18 06:59 06:59 06:59 Intake Total 1840 Output Total 1999 Balance -160 Result Diagrams: 06/23/18 03:40 06/27/18 04:23 <Codey Greenfield - Last Filed: 06/27/18 07:02> - Objective Vital Signs & Weight: Vital Signs (12 hours) Temp Pulse Resp BP Pulse Ox 06/27/18 08:00 97.8 F 72 16 122/71 95 06/27/18 07:56 62 Weight Admit Weight 88.139 kg Weight 88.088 kg I&O: 06/26/18 06/27/18 06/28/18 06:59 06:59 06:59 Intake Total 1840 600 Output Total 1999 Balance -160 600 Result Diagrams: 06/23/18 03:40 06/27/18 04:23 <Fátima Roman - Last Filed: 06/27/18 15:34> Phys Exam - Physical Examination Constitutional: NAD HEENT: PERRLA, moist MMs Neck: no nodes, no JVD Respiratory: clear to auscultation bilateral Cardiovascular: RRR 2/6 systolic murmur Gastrointestinal: soft, non-tender, no distention Musculoskeletal: no edema Neurological: non-focal, normal sensation, moves all 4 limbs Psychiatric: normal affect, A&O x 3 Skin: no rash, normal turgor <Codey Greenfield - Last Filed: 06/27/18 07:02> Dx/Plan (1) Physical deconditioning Code(s): R53.81 - OTHER MALAISE Status: Acute (2) Diabetic ketoacidosis associated with type 2 diabetes mellitus Code(s): E11.10 - TYPE 2 DIABETES MELLITUS WITH KETOACIDOSIS WITHOUT COMA Status: Resolved (3) Acute kidney injury Code(s): N17.9 - ACUTE KIDNEY FAILURE, UNSPECIFIED Status: Resolved (4) Elevated troponin Code(s): R74.8 - ABNORMAL LEVELS OF OTHER SERUM ENZYMES Status: Acute (5) Hyperkalemia Code(s): E87.5 - HYPERKALEMIA Status: Resolved (6) Leukocytosis Code(s): D72.829 - ELEVATED WHITE BLOOD CELL COUNT, UNSPECIFIED Status: Acute (7) DM type 2 (diabetes mellitus, type 2) Status: Chronic Qualifiers: Diabetes mellitus home health physical therapist insulin use: with fdc use Diabetes mellitus complication status: without complication Qualified Code(s): E11.9 - Type 2 diabetes mellitus without complications; Z79.4 - trim setter helper (current) use of insulin; Z79.4 - USP (current) use of insulin; Z79.4 - USP ( current) use of insulin; Z79.4 - USP (current) use of insulin (8) Dyslipidemia Code(s): E78.5 - HYPERLIPIDEMIA, UNSPECIFIED Status: Chronic (9) HTN (hypertension) Code(s): I10 - ESSENTIAL (PRIMARY) HYPERTENSION Status: Chronic Qualifiers: Hypertension type: essential hypertension Qualified Code(s): I10 - Essential (primary) hypertension (10) Systolic murmur Code(s): R01.1 - CARDIAC MURMUR, UNSPECIFIED Status: Acute - Plan Plan: Physical deconditioning - Has been accepted to [facility], pending insurance approval. Hypokalemia - resolved Systolic murmur - incidental finding. Echo finds diastolic dysfunction with mild MR and TR. DKA, resolved ROSA, resolved - Continue to monitor BMP as above Leukocytosis, resolved - Cx negative other than coag neg staph. Likely contaminant Hyperkalemia - resolved Elevated trop - demand related. Down trending HTN - Home meds. currently controlled DM2 - home meds with exception of SGLT2 - Glucose well controlled at this time. Accucheck ACHS Dyslipidemia -home meds Chronic back pain - start home meds Dispo: Ready to DC to inpatient rehab pending insurance <Codey Greenfield - Last Filed: 06/27/18 07:02> Attending Addendum - Attending Addendum Date/Time: 06/27/18 9579 I personally evaluated the patient and discussed the management with Dr. Greenfield. I agree with the History, Examination, Assessment and Plan documented above with any addition or exceptions noted below. Pt is feeling better. He is waiting on insurance approval for inpt rehab. He and his noticed improvement in strength in the last 2 days and are inquiring about possible d/c home. Willl have PT eval and give recs. <áFtima Roman - Last Filed: 06/27/18 15:34>
[2018-06-27] MEDS: Morphine ER 30 MG TAB PO SCH ×2 (07:54→20:07)
[2018-06-27] MEDS: Magnesium Chloride 64 MG TAB PO SCH ×2 (07:54→20:07)
[2018-06-27] MEDS: Metoprolol Tartrate 50 MG TAB PO SCH (07:55)
[2018-06-27] MEDS: Ezetimibe 10 MG TAB PO SCH (07:56)
[2018-06-27] MEDS: Lisinopril 2.5 MG TAB PO SCH (07:56)
[2018-06-27] MEDS: DULoxetine 60 MG CAP PO SCH ×2 (07:56→20:07)
[2018-06-27] MEDS: Enoxaparin Sodium 40 MG/0.4 ML SYRINGE SC SCH (07:56)
[2018-06-27] MEDS: Insulin Glargine 35 UNITS in Pre-Filled Syringe 1 EACH SC SCH (09:50)
[2018-06-27] MEDS: Atorvastatin Calcium 40 MG TAB PO SCH (20:07)
[2018-06-28] MEDS: HumaLOG 300 UNITS/3 ML VIAL SC PRN (05:43)
--- NOTE | 2018-06-28 07:21 | PDOC.FM ---
- Subjective Subjective: Pt seen at bedside this am. Pt is awake and pleasant with no current complaints. There were no acute events over night. - Objective MAR Reviewed: Yes Vital Signs & Weight: Vital Signs (12 hours) Temp Pulse Resp BP Pulse Ox 06/27/18 20:00 98.3 F 82 16 122/70 93 L Weight Admit Weight 88.139 kg Weight 88.088 kg I&O: 06/27/18 06/28/18 06/29/18 06:59 06:59 06:59 Intake Total 1840 1895 Output Total 1999 Balance -160 1895 Result Diagrams: 06/23/18 03:40 06/27/18 04:23 <Codey Greenfield - Last Filed: 06/28/18 07:19> - Objective Vital Signs & Weight: Vital Signs (12 hours) Temp Pulse Resp BP Pulse Ox 06/28/18 08:00 97.4 F L 92 18 106/67 93 L 06/28/18 07:50 82 Weight Admit Weight 88.139 kg Weight 88.088 kg I&O: 06/27/18 06/28/18 06/29/18 06:59 06:59 06:59 Intake Total 1840 1895 600 Output Total 1999 Balance -160 1895 600 Result Diagrams: 06/23/18 03:40 06/27/18 04:23 <Fátima Roman - Last Filed: 06/28/18 16:12> Phys Exam - Physical Examination Constitutional: NAD HEENT: moist MMs Neck: no JVD Respiratory: clear to auscultation bilateral Cardiovascular: RRR, no significant murmur 2/6 systolic murmur Gastrointestinal: soft, non-tender, no distention Musculoskeletal: no edema Neurological: non-focal, normal sensation Psychiatric: normal affect, A&O x 3 Skin: no rash <Codey Greenfield - Last Filed: 06/28/18 07:19> Dx/Plan (1) Physical deconditioning Code(s): R53.81 - OTHER MALAISE Status: Acute (2) Diabetic ketoacidosis associated with type 2 diabetes mellitus Code(s): E11.10 - TYPE 2 DIABETES MELLITUS WITH KETOACIDOSIS WITHOUT COMA Status: Resolved (3) Acute kidney injury Code(s): N17.9 - ACUTE KIDNEY FAILURE, UNSPECIFIED Status: Resolved (4) Elevated troponin Code(s): R74.8 - ABNORMAL LEVELS OF OTHER SERUM ENZYMES Status: Acute (5) Hyperkalemia Code(s): E87.5 - HYPERKALEMIA Status: Resolved (6) Leukocytosis Code(s): D72.829 - ELEVATED WHITE BLOOD CELL COUNT, UNSPECIFIED Status: Acute (7) DM type 2 (diabetes mellitus, type 2) Status: Chronic Qualifiers: Diabetes mellitus senior care insulin use: with intermodal customer service use Diabetes mellitus complication status: without complication Qualified Code(s): E11.9 - Type 2 diabetes mellitus without complications; Z79.4 - vermin exterminator (current) use of insulin; Z79.4 - USP (current) use of insulin; Z79.4 - vermin exterminator ( current) use of insulin; Z79.4 - USP (current) use of insulin (8) Dyslipidemia Code(s): E78.5 - HYPERLIPIDEMIA, UNSPECIFIED Status: Chronic (9) HTN (hypertension) Code(s): I10 - ESSENTIAL (PRIMARY) HYPERTENSION Status: Chronic Qualifiers: Hypertension type: essential hypertension Qualified Code(s): I10 - Essential (primary) hypertension (10) Systolic murmur Code(s): R01.1 - CARDIAC MURMUR, UNSPECIFIED Status: Acute - Plan Plan: Physical deconditioning - Has been accepted to [facility], pending insurance approval. Likely tomorrow. DM2 - home meds with exception of SGLT2 dt association with DKA - Glucose well controlled at this time. Accucheck ACHS - low carb diet Hypokalemia - resolved Systolic murmur - incidental finding. Echo finds diastolic dysfunction with mild MR and TR. DKA, resolved ROSA, resolved - Continue to monitor BMP as above Leukocytosis, resolved Hyperkalemia - resolved Elevated trop - demand related. Down trending HTN - Home meds. currently controlled Dyslipidemia -home meds Chronic back pain - start home meds Dispo: Ready to DC to inpatient rehab pending insurance <Codey Greenfield - Last Filed: 06/28/18 07:19> Attending Addendum - Attending Addendum Date/Time: 06/28/18 0611 I personally evaluated the patient and discussed the management with Dr. Greenfield. I agree with the History, Examination, Assessment and Plan documented above with any addition or exceptions noted below. The patient is waiting on insurance approval to inpt rehab. Following PT recs. Pt ambulating with a walker. Blood sugar stable. <Fátima Roman - Last Filed: 06/28/18 16:12>
[2018-06-28] MEDS: Enoxaparin Sodium 40 MG/0.4 ML SYRINGE SC SCH (07:50)
[2018-06-28] MEDS: Lisinopril 2.5 MG TAB PO SCH (07:50)
[2018-06-28] MEDS: Magnesium Chloride 64 MG TAB PO SCH ×2 (07:50→20:41)
[2018-06-28] MEDS: DULoxetine 60 MG CAP PO SCH ×2 (07:50→20:01)
[2018-06-28] MEDS: Ezetimibe 10 MG TAB PO SCH (07:51)
[2018-06-28] MEDS: Morphine ER 30 MG TAB PO SCH ×2 (07:51→20:01)
[2018-06-28] MEDS: Metoprolol Tartrate 50 MG TAB PO SCH (07:52)
[2018-06-28] MEDS: Insulin Glargine 35 UNITS in Pre-Filled Syringe 1 EACH SC SCH (07:52)
[2018-06-28] MEDS: Atorvastatin Calcium 40 MG TAB PO SCH (20:01)
[2018-06-29] MEDS: HumaLOG 300 UNITS/3 ML VIAL SC PRN (05:57)
--- NOTE | 2018-06-29 08:09 | PDOC.FM ---
- Subjective Subjective: Pt seen at bedside this morning. No acute distress. Pt states that he feels much stronger and thinks that he wants to go home rather than rehab. There were no acute events over night. He has no specific complaints today. - Objective MAR Reviewed: Yes Vital Signs & Weight: Vital Signs (12 hours) Temp Pulse Resp BP Pulse Ox 06/29/18 07:37 98.4 F 86 20 115/70 92 L Weight Admit Weight 88.139 kg Weight 88.088 kg I&O: 06/28/18 06/29/18 06/30/18 06:59 06:59 06:59 Intake Total 1895 1160 Balance 1895 1160 Result Diagrams: 06/23/18 03:40 06/27/18 04:23 <Codey Greenfield - Last Filed: 06/29/18 08:08> - Objective Vital Signs & Weight: Vital Signs (12 hours) Temp Pulse Resp BP BP Pulse Ox 06/29/18 08:28 96 06/29/18 08:14 86 115/70 06/29/18 07:37 98.4 F 86 20 115/70 92 L Weight Admit Weight 88.139 kg Weight 88.088 kg I&O: 06/28/18 06/29/18 06/30/18 06:59 06:59 06:59 Intake Total 1895 1160 Balance 1895 1160 Result Diagrams: 06/23/18 03:40 06/27/18 04:23 <Марина Smith - Last Filed: 06/29/18 10:17> Phys Exam - Physical Examination Constitutional: NAD HEENT: PERRLA, moist MMs Neck: no nodes, no JVD Respiratory: clear to auscultation bilateral Cardiovascular: RRR 2/6 systolic murmur Gastrointestinal: soft, non-tender, no distention Musculoskeletal: no edema, pulses present Neurological: non-focal, normal sensation, moves all 4 limbs Psychiatric: normal affect, A&O x 3 Skin: no rash, normal turgor <Codey Greenfield - Last Filed: 06/29/18 08:08> Dx/Plan (1) Physical deconditioning Code(s): R53.81 - OTHER MALAISE Status: Acute (2) Diabetic ketoacidosis associated with type 2 diabetes mellitus Code(s): E11.10 - TYPE 2 DIABETES MELLITUS WITH KETOACIDOSIS WITHOUT COMA Status: Resolved (3) Acute kidney injury Code(s): N17.9 - ACUTE KIDNEY FAILURE, UNSPECIFIED Status: Resolved (4) Elevated troponin Code(s): R74.8 - ABNORMAL LEVELS OF OTHER SERUM ENZYMES Status: Acute (5) Hyperkalemia Code(s): E87.5 - HYPERKALEMIA Status: Resolved (6) Leukocytosis Code(s): D72.829 - ELEVATED WHITE BLOOD CELL COUNT, UNSPECIFIED Status: Acute (7) DM type 2 (diabetes mellitus, type 2) Status: Chronic Qualifiers: Diabetes mellitus terminal make up operator insulin use: with skilled nursing use Diabetes mellitus complication status: without complication Qualified Code(s): E11.9 - Type 2 diabetes mellitus without complications; Z79.4 - parts counterman (current) use of insulin; Z79.4 - parts counterman (current) use of insulin; Z79.4 - residential ( current) use of insulin; Z79.4 - parts counterman (current) use of insulin (8) Dyslipidemia Code(s): E78.5 - HYPERLIPIDEMIA, UNSPECIFIED Status: Chronic (9) HTN (hypertension) Code(s): I10 - ESSENTIAL (PRIMARY) HYPERTENSION Status: Chronic Qualifiers: Hypertension type: essential hypertension Qualified Code(s): I10 - Essential (primary) hypertension (10) Systolic murmur Code(s): R01.1 - CARDIAC MURMUR, UNSPECIFIED Status: Acute - Plan Plan: Physical deconditioning - Has been accepted to [facility], however patient has made dramatic improvement with pt here while waiting on insurance approval for inpatient rehab. I do not think it is unreasonable to go home today pending PT eval. DM2 - home meds with exception of SGLT2 dt association with DKA - Glucose well controlled at this time. Accucheck ACHS - low carb diet Hypokalemia - resolved Systolic murmur - incidental finding. Echo finds diastolic dysfunction with mild MR and TR. DKA, resolved ROSA, resolved - Continue to monitor BMP as above Leukocytosis, resolved Hyperkalemia - resolved Elevated trop - demand related. Down trending HTN - Home meds. currently controlled Dyslipidemia -home meds Chronic back pain - start home meds Dispo: Ready to DC today <Codey Greenfield - Last Filed: 06/29/18 08:08> Attending Addendum - Attending Addendum Date/Time: 06/29/18 1014 I personally evaluated the patient and discussed the management with Dr. Greenfield I agree with the History, Examination, Assessment and Plan documented above with any addition or exceptions noted below. 63 yo male with hx of DM admitted for moderate DKA 2/2 to mediation use. HD#8 Doing well. Ambulating well. No complaints. VS reviewed. Labs reviewed. DKA: Resolved. DM: Adjust home regiment. Follow up with PCP. SGL2 held. Deconditioning: Improved. Ok to d/c to home. Follow up with PCP later this week. Discussed options of outpatient PT if needed. Patient feels safe and has help at home. Merlin <Марина Smith - Last Filed: 06/29/18 10:17>
[2018-06-29] MEDS: Lisinopril 2.5 MG TAB PO SCH (08:14)
[2018-06-29] MEDS: DULoxetine 60 MG CAP PO SCH (08:15)
[2018-06-29] MEDS: Metoprolol Tartrate 50 MG TAB PO SCH (08:15)
[2018-06-29] MEDS: Ezetimibe 10 MG TAB PO SCH (08:15)
[2018-06-29] MEDS: Morphine ER 30 MG TAB PO SCH (08:16)
[2018-06-29] MEDS: Insulin Glargine 35 UNITS in Pre-Filled Syringe 1 EACH SC SCH (08:17)
[2018-06-29] MEDS: Magnesium Chloride 64 MG TAB PO SCH (08:17)
[2018-06-29] MEDS: Enoxaparin Sodium 40 MG/0.4 ML SYRINGE SC SCH (08:18)
[2018-06-29 12:06] VITALS: BP 131/77; TEMP 97.7
== END 2018-06-29 12:49 | disposition home or self-care (01) | DRG 637 ==
LOC: ERS 14:38 → IMCU/EMU 19:06 → T4-A 06-24 18:51
PROVIDERS: ADMIT Family Medicine; ATTEND Family Medicine
DX: E11.10 Type 2 diabetes mellitus with ketoacidosis without coma (principal); J96.01 Acute respiratory failure with hypoxia; G93.41 Metabolic encephalopathy; N17.9 Acute kidney failure, unspecified; I24.8 Other forms of acute ischemic heart disease; E87.5 Hyperkalemia; E78.5 Hyperlipidemia, unspecified; I10 Essential (primary) hypertension; I25.10 Atherosclerotic heart disease of native coronary artery without angina pectoris; I25.2 Old myocardial infarction; Z95.5 Presence of coronary angioplasty implant and graft; E11.319 Type 2 diabetes mellitus with unspecified diabetic retinopathy without macular edema; D72.829 Elevated white blood cell count, unspecified; G89.29 Other chronic pain; M54.9 Dorsalgia, unspecified; R53.81 Other malaise; R74.8 Abnormal levels of other serum enzymes
CPT/HCPCS: 36415; 36416; 51701; 71045; 80048; 80053; 81003; 82010; 82330; 82553; 82803; 82805; 83605; 83735; 83880; 84145; 84484; 85007; 85025; 85027; 87040; 87086; 87149; 93005; 93306; 94660; 96361; 96365; 96367; 96374; 96376; A4216; G8978-GP-CI; G8978-GP-CL; G8979-GP-CH; G8979-GP-CJ; G8987-GO-CJ; G8988-GO-CI; J1650; J1815; J2543; J7050

== ENCOUNTER 2018-08-16 19:30 | Outpatient (CLI) | payer MEDICARE | END 2018-08-16 19:31 | disposition home or self-care (01) | LOC: SLEEPLAB 19:30 | PROVIDERS: ATTEND Family Medicine | DX: G47.33 Obstructive sleep apnea (adult) (pediatric) (principal); R53.83 Other fatigue; R06.83 Snoring; I25.10 Atherosclerotic heart disease of native coronary artery without angina pectoris; E11.9 Type 2 diabetes mellitus without complications; I25.2 Old myocardial infarction; E66.9 Obesity, unspecified; Z68.29 Body mass index [BMI] 29.0-29.9, adult | CPT/HCPCS: 95811 ==

== ENCOUNTER 2018-11-27 18:14 | Emergency (ER) | payer MEDICARE ==
[2018-11-27 19:15] LABS: #Lymphocytes 1.7 thou/uL (1.20-3.40); #Monocytes 0.5 thou/uL (0.11-0.59); #Neutrophils 6.3 thou/uL (1.40-6.50); %Basophils 0.4 % (0.0-1.0); %Eosinophils 0.5 % (0.0-10.0); %Lymphocytes 19.4 % (21.0-51.0); %Monocytes 6.2 % (0.0-10.0); %Neutrophils 73.5 % (42.0-75.0); Hemoglobin 15.2 g/dL (14.0-18.0); Mean Corpuscular HGB CONC 33.2 g/dL (32.0-36.0); Mean Corpuscular Hemoglobin 29.1 pg (27.0-31.0); Mean Corpuscular Volume 87.9 fL (78.0-98.0); Mean Platelet Volume 8.1 fL (7.4-10.4); Platelet Count 256 thou/uL (130-400); RBC Distribution Width 13.1 % (11.5-14.5); Red Blood Cell (RBC) Count 5.21 mill/uL (4.70-6.10); White Blood Cell (WBC) Count 8.6 thou/uL (4.8-10.8)
[2018-11-27 19:36] LABS: ALT (SGPT) 21 U/L (8-55); AST (SGOT) 20 U/L (5-34); Albumin 4.7 g/dL (3.4-4.8); Alkaline Phosphatase 86 U/L (40-150); Anion Gap 22 mmol/L (10-20); BUN (Urea Nitrogen) 24 mg/dL (8.4-25.7); Bilirubin, Total 0.9 mg/dL (0.2-1.2); CK (CPK) 54 U/L (30-200); Calc. Creatinine Clearance 0 mL/min (70-130); Calcium 10.8 mg/dL (7.8-10.44); Carbon Dioxide 21 mmol/L (23-31); Chloride 97 mmol/L (98-107); Estimated GFR-MDRD 56; Globulin 3.2 g/dL (2.4-3.5); Glucose 440 mg/dL (80-115); Magnesium 2.2 mg/dL (1.6-2.6); Potassium 4.9 mmol/L (3.5-5.1); Protein, Total 7.9 g/dL (5.8-8.1); Sodium 135 mmol/L (136-145)
[2018-11-27 19:37] LABS: Acetaminophen Less than 6.0 mcg/mL (10.0-30.0); Alcohol Less than 10 mg/dL (Less than 10); Salicylate Less than 8.0 mg/dL (15.0-30.0)
[2018-11-27] MEDS ORDERED: cloNIDine 0.1 MG TAB ONE (19:44)
--- NOTE | 2018-11-27 20:00 | RAD ---
AP VIEW CHEST: 11/27/18 HISTORY: Sternal pain. AP view chest is obtained on 11/27/18. Comparison is made to previous exam from 06/22/18. AP view chest demonstrates numerous electronic leads over the upper thoracic region. These are stable and unchanged. The lungs are well aerated. No evidence of acute intrathoracic masses, hemorrhages or strokes seen. IMPRESSION: Unremarkable AP view chest. POS: [facility]
[2018-11-27] MEDS ORDERED: Ketorolac Tromethamine 30 MG/ML VIAL ONE (20:14)
== END 2018-11-27 21:35 | disposition home or self-care (01) ==
LOC: ERS 18:14
DX: F11.23 Opioid dependence with withdrawal (principal); I25.2 Old myocardial infarction; E11.9 Type 2 diabetes mellitus without complications; I10 Essential (primary) hypertension; Z79.899 Other long term (current) drug therapy; Z79.4 Long term (current) use of insulin
CPT/HCPCS: 71045; 80053; 80307; 82550; 83605; 83735; 84484; 85025; 93005; 94760; 96372; J1885

== ENCOUNTER 2019-01-19 19:43 | Emergency (ER) | payer MEDICARE ==
--- NOTE | 2019-01-19 22:13 | RAD ---
3 views of the left hand: 01/19/2019 COMPARISON: None HISTORY: Laceration FINDINGS: The bones appear demineralized. No radiopaque foreign body, displaced fracture, or evidence of dislocation. IMPRESSION: No acute fracture or dislocation seen.
[2019-01-19] MEDS ORDERED: Lidocaine 1% PF 5 ML VIAL ONE (22:14)
[2019-01-19] MEDS ORDERED: Adacel (T-DAP) 0.5 ML SYRINGE ONE (22:18)
== END 2019-01-19 23:35 | disposition home or self-care (01) ==
LOC: ERS 19:43
DX: S61.412A Laceration without foreign body of left hand, initial encounter (principal); I25.2 Old myocardial infarction; I10 Essential (primary) hypertension; E11.10 Type 2 diabetes mellitus with ketoacidosis without coma; W26.0XXA Contact with knife, initial encounter
CPT/HCPCS: 12001; 90471; 90715; J2001

== ENCOUNTER 2019-10-05 19:30 | Outpatient (CLI) | payer MEDICARE | END 2019-10-05 19:31 | disposition home or self-care (01) | LOC: SLEEPLAB 19:30 | PROVIDERS: ATTEND Student in an Organized Health Care Education/Training Program | DX: G47.33 Obstructive sleep apnea (adult) (pediatric) (principal); E11.9 Type 2 diabetes mellitus without complications; E66.9 Obesity, unspecified; I21.9 Acute myocardial infarction, unspecified; F32.9 Major depressive disorder, single episode, unspecified; I25.10 Atherosclerotic heart disease of native coronary artery without angina pectoris | CPT/HCPCS: 95811 ==

== ENCOUNTER 2021-08-15 11:45 | Outpatient (CLI) | payer MEDICARE ==
[2021-08-15 13:12] LABS: #Basophils 0.1 10x3/uL (0.0-0.2); #Eosinphils 0.2 10x3/uL (0.0-0.5); #Monocytes 0.6 10x3/uL (0.0-1.1); %Basophils 1.2 % (0.0-2.0); %Eosinophils 2.5 % (0.0-6.0); %Lymphocytes 28.5 % (18.0-47.0); %Monocytes 8.7 % (0.0-10.0); %Neutrophils 58.8 % (40.0-75.0); Hemoglobin 13.8 g/dL (13.5-17.5); Mean Corpuscular HGB CONC 31.2 g/dL (32.0-36.0); Mean Corpuscular Hemoglobin 28.2 pg (27.0-33.0); Mean Corpuscular Volume 90.2 fl (81.2-95.1); Platelet Count 216 10x3/uL (150-450); RBC Distribution Width 15.3 % (11.5-14.5); White Blood Cell (WBC) Count 6.8 10x3/uL (3.5-10.5)
[2021-08-15 13:42] LABS: ALT (SGPT) 20 U/L (8-55); AST (SGOT) 22 U/L (5-34); Albumin 4.2 g/dL (3.4-4.8); Alkaline Phosphatase 84 U/L (40-110); Anion Gap 19 mmol/L (10-20); BUN (Urea Nitrogen) 18 mg/dL (8.4-25.7); Bilirubin, Total 0.5 mg/dL (0.2-1.2); Calc. Creatinine Clearance 0 mL/min (70-130); Calcium 9.3 mg/dL (7.8-10.44); Carbon Dioxide 22 mmol/L (23-31); Chloride 103 mmol/L (98-107); Glucose 120 mg/dL (80-115); Potassium 4.9 mmol/L (3.5-5.1); Protein, Total 7.2 g/dL (5.8-8.1); Sodium 139 mmol/L (136-145)
[2021-08-16 11:58] LABS: SARS-CoV-2 PCR by NAA Not Detected (NotDetected)
== END 2021-08-15 11:46 | disposition home or self-care (01) ==
LOC: LABBT 11:45
PROVIDERS: ATTEND Neurological Surgery
DX: Z01.818 Encounter for other preprocedural examination (principal); Z20.822 Contact with and (suspected) exposure to COVID-19
CPT/HCPCS: 80053; 85025; 93005; U0003; U0005; 93010

== ENCOUNTER 2021-08-17 05:46 | Day surgery (SDC) | payer MEDICARE ==
[2021-08-16 10:34] VITALS: BMI 34.5
[2021-08-17] MEDS ORDERED: Midazolam HCl 2 mg/2 ml Vial ONE (07:02)
[2021-08-17] MEDS ORDERED: Fentanyl 100 MCG/2 ML VIAL ONE (07:02)
[2021-08-17] MEDS ORDERED: Protamine Sulfate 50 MG/5 ML VIAL ONE (07:37)
[2021-08-17] MEDS ORDERED: Heparin 10,000 UNITS/ 10 ML VIAL ONE (07:37)
== END 2021-08-17 14:45 | disposition home or self-care (01) ==
LOC: CCL 05:46
PROVIDERS: ATTEND Internal Medicine Cardiovascular Disease
PROC: 4A023N7 Measurement of Cardiac Sampling and Pressure, Left Heart, Percutaneous Approach (ICD-10-PCS; principal; 2021-08-17)
PROC: B2111ZZ Fluoroscopy of Multiple Coronary Arteries using Low Osmolar Contrast (ICD-10-PCS; 2021-08-17)
DX: I25.10 Atherosclerotic heart disease of native coronary artery without angina pectoris (principal); I25.82 Chronic total occlusion of coronary artery; E11.9 Type 2 diabetes mellitus without complications; E78.5 Hyperlipidemia, unspecified; I25.2 Old myocardial infarction; E78.00 Pure hypercholesterolemia, unspecified; G89.29 Other chronic pain; M54.50 Low back pain, unspecified; E66.9 Obesity, unspecified; Z68.34 Body mass index [BMI] 34.0-34.9, adult; Z79.4 Long term (current) use of insulin; Z79.82 Long term (current) use of aspirin; Z79.84 Long term (current) use of oral hypoglycemic drugs; Z79.899 Other long term (current) drug therapy; Z95.5 Presence of coronary angioplasty implant and graft
CPT/HCPCS: 76942; 85347; 93458; 99152; J1644; J2250; J2720; J3010

== ENCOUNTER 2021-08-24 09:00 | Inpatient (IN) | payer MEDICARE ==
[2021-08-22 12:05] VITALS: BMI 34.5
[2021-08-24 10:55] LABS: Hemoglobin 13.4 g/dL (13.5-17.5); Mean Corpuscular HGB CONC 31.2 g/dL (32.0-36.0); Mean Corpuscular Hemoglobin 28.5 pg (27.0-33.0); Mean Corpuscular Volume 91.3 fl (81.2-95.1); Mean Platelet Volume 11.2 fl (7.4-10.4); Platelet Count 204 10x3/uL (150-450); RBC Distribution Width 15.1 % (11.5-14.5)
[2021-08-24 10:57] LABS: Anion Gap 18 mmol/L (10-20); BUN (Urea Nitrogen) 17 mg/dL (8.4-25.7); Calc. Creatinine Clearance 0 mL/min (70-130); Calcium 9.6 mg/dL (7.8-10.44); Carbon Dioxide 24 mmol/L (23-31); Chloride 105 mmol/L (98-107); Glucose 153 mg/dL (80-115); Potassium 4.7 mmol/L (3.5-5.1); Sodium 142 mmol/L (136-145)
[2021-08-24 23:17] LABS: SARS-CoV-2 PCR by NAA Not Detected (NotDetected)
[2021-08-28] MEDS ORDERED: Albumin 5% 500 ML ONE (06:28)
[2021-08-28] MEDS ORDERED: Fentanyl 250 MCG/5 ML VIAL ONE (06:49)
[2021-08-28] MEDS ORDERED: Midazolam HCl 5 mg/5 ml Vial ONE (06:49)
[2021-08-28] MEDS ORDERED: Heparin 10,000 UNITS/1 ML VIAL 30,000 UNITS in Sodium Chloride 0.9% 1,000 ML FS SCH (07:00)
[2021-08-28] MEDS ORDERED: Adenosine 6 MG/2 ML VIAL ONE (07:27)
[2021-08-28] MEDS ORDERED: Insulin Regular 300 UNITS/3 ML VIAL ONE (07:27)
[2021-08-28] MEDS ORDERED: Magnesium Sulfate 1 GM/2 ML VIAL ONE (07:35)
[2021-08-28] MEDS ORDERED: Lidocaine 1% PF 5 ML VIAL ONE (07:35)
[2021-08-28] MEDS ORDERED: Aminocaproic Acid 5 GM/20 ML VIAL ONE (07:35)
[2021-08-28] MEDS ORDERED: Cardioplegic Soln 1,000 ML BAG ONE (07:35)
[2021-08-28] MEDS ORDERED: Heparin 30,000 units/30 ml VIAL ONE (07:35)
[2021-08-28] MEDS ORDERED: Calcium Chloride 1 GM/10 ML Abboject SYRINGE ONE (07:35)
[2021-08-28] MEDS ORDERED: Rocuronium Bromide 10 MG/ML (10ML VIAL) ONE (07:35)
[2021-08-28] MEDS ORDERED: Thrombin 5000 UNITS/5 ML VIAL ONE (07:35)
[2021-08-28] MEDS ORDERED: Protamine Sulfate 250 MG/25 ML VIAL ONE (07:35)
[2021-08-28] MEDS ORDERED: Lidocaine 2% PF 100 mg/5 ml Syringe ONE (07:35)
[2021-08-28] MEDS ORDERED: Heparin 5,000 UNITS/ML VIAL ONE (07:35)
[2021-08-28] MEDS ORDERED: Mannitol 12.5 GM/50 ML ONE (07:35)
[2021-08-28] MEDS ORDERED: Potassium Chloride 60 MEQ/30 ML VIAL ONE (07:35)
[2021-08-28] MEDS ORDERED: Sodium Bicarb 50 MEQ/50 ML Abboject 8.4% SYRINGE ONE (07:35)
[2021-08-28] MEDS ORDERED: PROPOFOL 200 MG/20 ML VIAL ONE (07:35)
[2021-08-28] MEDS ORDERED: PHENYLEPHRINE-NS 100 MCG/ML 10 ML SYRINGE ONE (07:35)
[2021-08-28] MEDS ORDERED: Papaverine 60 MG/2 ML VIAL ONE (07:35)
[2021-08-28] MEDS ORDERED: Bisacodyl 5 MG TAB PO PRN (11:13)
[2021-08-28] MEDS ORDERED: Potassium Chloride 20 MEQ/100 ML PREMIX BAG IVPB PRN (11:13)
[2021-08-28] MEDS ORDERED: Hetastarch 6% 500 ML 500 ML IVPB PRN (11:13)
[2021-08-28] MEDS ORDERED: Ondansetron PF 4 MG/2 ML Vial IVP PRN (11:13)
[2021-08-28] MEDS ORDERED: hydrALAZINE 20 MG/ML VIAL SLOW IVP PRN (11:13)
[2021-08-28] MEDS ORDERED: niCARdipine 25 MG in Sodium Chloride 0.9% 250 ML 250 ML IVPB PRN (11:13)
[2021-08-28] MEDS ORDERED: Mag-Al 1200 mg/1200 mg/30 ML UDCUP PO PRN (11:13)
[2021-08-28] MEDS ORDERED: Post-Op Insulin Drip Protocol IVPB ONE (11:13)
[2021-08-28] MEDS ORDERED: Nitroglycerin 50 MG/250 ML BOT 250 ML IVPB PRN (11:13)
[2021-08-28] MEDS ORDERED: HYDROcodone/Acetaminophen 5/325 mg Tablet PO PRN (11:13)
[2021-08-28] MEDS ORDERED: Norepinephrine 8 MG/0.9% NS 250 ML IVPB PRN (11:13)
[2021-08-28] MEDS ORDERED: Bisacodyl 10 MG SUPP PR PRN (11:13)
[2021-08-28] MEDS ORDERED: Promethazine HCl 25 MG/ML VIAL IM PRN (11:13)
[2021-08-28] MEDS ORDERED: Fentanyl 100 MCG/2 ML VIAL SLOW IVP PRN ×2 (11:13)
[2021-08-28] MEDS ORDERED: Guaifenesin DM 100-10/5 ML UDCUP PO PRN (11:13)
[2021-08-28] MEDS ORDERED: Acetaminophen 325 MG TAB PO PRN (11:13)
[2021-08-28] MEDS ORDERED: Morphine 4 MG/ML VIAL SLOW IVP PRN (11:13)
[2021-08-28] MEDS ORDERED: DOPamine 400 MG/D5W 250 ML 250 ML IVPB PRN (11:13)
[2021-08-28] MEDS ORDERED: DOPamine 400 MG/D5W 250 ML 250 ML ONE (11:45)
[2021-08-28 11:50] LABS: #Eosinphils 0.1 thou/uL (0.0-0.7); #Lymphocytes 1.2 thou/uL (1.20-3.40); #Monocytes 0.5 thou/uL (0.11-0.59); #Neutrophils 7.4 thou/uL (1.40-6.50); %Basophils 0.2 % (0.0-1.0); %Lymphocytes 12.9 % (21.0-51.0); %Monocytes 5.9 % (0.0-10.0); %Neutrophils 80.1 % (42.0-75.0); Hemoglobin 10.6 g/dL (14.0-18.0); Mean Corpuscular HGB CONC 32.6 g/dL (32.0-36.0); Mean Corpuscular Hemoglobin 29.7 pg (27.0-31.0); Mean Corpuscular Volume 91.1 fL (78.0-98.0); Mean Platelet Volume 8.5 fL (7.4-10.4); Platelet Count 140 thou/uL (130-400); RBC Distribution Width 14.3 % (11.5-14.5); Red Blood Cell (RBC) Count 3.56 mill/uL (4.70-6.10); White Blood Cell (WBC) Count 9.2 thou/uL (4.8-10.8)
[2021-08-28] MEDS ORDERED: Fentanyl 100 MCG/2 ML VIAL ONE ×2 (12:09→12:59)
[2021-08-28 12:13] LABS: INR-International Normal Ratio 1.2; PTT 33.7 sec (22.9-36.1); Prothrombin Time 15.4 sec (12.0-14.7)
[2021-08-28 12:22] LABS: Anion Gap 12 mmol/L (10-20); BUN (Urea Nitrogen) 13 mg/dL (8.4-25.7); Calc. Creatinine Clearance 130 mL/min (70-130); Calcium 7.9 mg/dL (7.8-10.44); Carbon Dioxide 23 mmol/L (23-31); Chloride 111 mmol/L (98-107); Glucose 140 mg/dL (80-115); Potassium 4.6 mmol/L (3.5-5.1); Sodium 141 mmol/L (136-145)
[2021-08-28] MEDS ORDERED: Nitroglycerin 50 MG/250 ML BOT 250 ML ONE (12:38)
[2021-08-28] MEDS ORDERED: Insulin Regular 300 UNITS/3 ML VIAL SC PRN (13:15)
[2021-08-28] MEDS ORDERED: Dextrose 50% Abboject 50 ML SYRINGE SLOW IVP PRN (13:15)
[2021-08-28] MEDS ORDERED: HUMULIN R 100 UNITS in Sodium Chloride 0.9% 100 ML IVPB SCH (13:15)
[2021-08-28] MEDS ORDERED: Dextrose 5% in Water 1,000 ML IV PRN (13:15)
[2021-08-28] MEDS ORDERED: Lantus 1000 UNITS/10 ML VIAL SC PRN (13:15)
[2021-08-28] MEDS: Lactated Ringer's 1,000 ML IV SCH (13:38)
[2021-08-28] MEDS: Ketorolac Tromethamine 30 MG/ML VIAL IVP SCH ×2 (13:39→17:03)
[2021-08-28] MEDS ORDERED: CEFAZOLIN 2 GM in Premix Bag 1 BAG IVPB SCH (16:00)
[2021-08-28] MEDS: CEFAZOLIN 2 GM in Sodium Chloride 0.9% 100 ML IVPB SCH (16:18)
[2021-08-28 17:24] LABS: Hemoglobin 10.4 g/dL (14.0-18.0)
[2021-08-28 17:48] LABS: Glucose 116 mg/dL (80-115); Potassium 4.5 mmol/L (3.5-5.1)
[2021-08-28] MEDS ORDERED: Atorvastatin Calcium 20 MG TAB PO SCH (21:00)
[2021-08-28] MEDS ORDERED: Famotidine/PF 20 mg/2ml Vial SLOW IVP SCH (21:00)
[2021-08-29] MEDS: Ketorolac Tromethamine 30 MG/ML VIAL IVP SCH ×4 (00:22→17:14)
[2021-08-29] MEDS: CEFAZOLIN 2 GM in Sodium Chloride 0.9% 100 ML IVPB SCH ×2 (00:23→07:53)
[2021-08-29] MEDS: Lactated Ringer's 1,000 ML IV SCH (00:45)
[2021-08-29] MEDS: HYDROcodone/Acetaminophen 5/325 mg Tablet PO PRN ×2 (01:13→05:18)
[2021-08-29 04:51] LABS: #Eosinphils 0.1 thou/uL (0.0-0.7); #Lymphocytes 0.9 thou/uL (1.20-3.40); #Monocytes 0.6 thou/uL (0.11-0.59); %Basophils 0.3 % (0.0-1.0); %Eosinophils 0.9 % (0.0-10.0); %Lymphocytes 11.6 % (21.0-51.0); %Neutrophils 79.3 % (42.0-75.0); Hemoglobin 10.8 g/dL (14.0-18.0); Mean Corpuscular HGB CONC 31.8 g/dL (32.0-36.0); Mean Corpuscular Volume 91.1 fL (78.0-98.0); Mean Platelet Volume 8.8 fL (7.4-10.4); Platelet Count 161 thou/uL (130-400); RBC Distribution Width 14.6 % (11.5-14.5); Red Blood Cell (RBC) Count 3.73 mill/uL (4.70-6.10); White Blood Cell (WBC) Count 7.5 thou/uL (4.8-10.8)
[2021-08-29 05:02] LABS: Anion Gap 8 mmol/L (10-20); BUN (Urea Nitrogen) 12 mg/dL (8.4-25.7); Calc. Creatinine Clearance 135 mL/min (70-130); Calcium 7.9 mg/dL (7.8-10.44); Carbon Dioxide 25 mmol/L (23-31); Chloride 112 mmol/L (98-107); Glucose 122 mg/dL (80-115); Potassium 4.3 mmol/L (3.5-5.1); Sodium 141 mmol/L (136-145)
[2021-08-29] MEDS ORDERED: Nitroglycerin 0.4 MG TAB (25 Tab Bottle) SL PRN (07:10)
[2021-08-29] MEDS ORDERED: AFRIN NASAL MIST 15 ML BOT NS SCH (07:10)
[2021-08-29] MEDS ORDERED: Mineral Oil ENEMA PR PRN (07:10)
[2021-08-29] MEDS ORDERED: Dextrose 5% in Water 1,000 ML IV PRN (07:45)
[2021-08-29] MEDS ORDERED: Dextrose 50% Abboject 50 ML SYRINGE SLOW IVP PRN (07:45)
[2021-08-29] MEDS: Pregabalin 75 MG CAP PO SCH ×2 (07:53→21:40)
[2021-08-29] MEDS: Polyethylene Glycol 3350 17 GM Packet PO SCH (07:53)
[2021-08-29] MEDS: Bupropion 150 MG XL TAB PO SCH (07:53)
[2021-08-29] MEDS: Famotidine 20 MG TAB PO SCH ×2 (07:53→21:41)
[2021-08-29] MEDS: Aspirin 325 mg Enteric Coated Tablet PO SCH (07:53)
[2021-08-29] MEDS ORDERED: Aspirin 325 MG TAB PO SCH (09:00)
[2021-08-29] MEDS: Lantus 1000 UNITS/10 ML VIAL SC SCH ×2 (09:24→21:44)
[2021-08-29] MEDS: Insulin Regular 300 UNITS/3 ML VIAL SC PRN ×2 (11:41→17:23)
[2021-08-29] MEDS ORDERED: LIRAGLUTIDE 0.6 MG/0.1 ML SC SCH (21:00)
[2021-08-29] MEDS: Atorvastatin Calcium 40 MG TAB PO SCH (21:40)
[2021-08-29] MEDS: Empagliflozin 10 MG TAB PO SCH (21:41)
[2021-08-30] MEDS: Ketorolac Tromethamine 30 MG/ML VIAL IVP SCH ×4 (01:11→17:55)
[2021-08-30] MEDS ORDERED: Furosemide 40 MG TAB PO SCH (09:00)
[2021-08-30] MEDS: Pregabalin 75 MG CAP PO SCH ×2 (09:05→21:32)
[2021-08-30] MEDS: Aspirin 325 mg Enteric Coated Tablet PO SCH (09:05)
[2021-08-30] MEDS: Lisinopril 5 MG TAB PO SCH (09:06)
[2021-08-30] MEDS: Metoprolol Tartrate 25 MG TAB PO SCH ×2 (09:06→21:32)
[2021-08-30] MEDS: Bupropion 150 MG XL TAB PO SCH (09:06)
[2021-08-30] MEDS: Potassium Chloride 10 MEQ TAB PO SCH (09:06)
[2021-08-30] MEDS: Polyethylene Glycol 3350 17 GM Packet PO SCH (09:07)
[2021-08-30] MEDS: Famotidine 20 MG TAB PO SCH ×2 (09:07→21:32)
[2021-08-30] MEDS: Insulin Regular 300 UNITS/3 ML VIAL SC PRN ×3 (10:48→21:34)
[2021-08-30] MEDS: Lantus 1000 UNITS/10 ML VIAL SC SCH ×2 (10:49→21:33)
[2021-08-30] MEDS: Empagliflozin 10 MG TAB PO SCH (21:31)
[2021-08-30] MEDS: Atorvastatin Calcium 40 MG TAB PO SCH (21:31)
[2021-08-31] MEDS: Ketorolac Tromethamine 30 MG/ML VIAL IVP SCH ×2 (01:29→06:32)
[2021-08-31] MEDS ORDERED: Lantus 1000 UNITS/10 ML VIAL SC SCH (05:49)
[2021-08-31] MEDS: Insulin Regular 300 UNITS/3 ML VIAL SC PRN ×4 (06:31→21:16)
[2021-08-31] MEDS: Furosemide 40 MG TAB PO SCH (06:31)
[2021-08-31] MEDS: Polyethylene Glycol 3350 17 GM Packet PO SCH (08:40)
[2021-08-31] MEDS: Metoprolol Tartrate 25 MG TAB PO SCH ×2 (08:41→21:18)
[2021-08-31] MEDS: Pregabalin 75 MG CAP PO SCH ×2 (08:41→21:18)
[2021-08-31] MEDS: Potassium Chloride 10 MEQ TAB PO SCH (08:41)
[2021-08-31] MEDS: Aspirin 325 mg Enteric Coated Tablet PO SCH (08:41)
[2021-08-31] MEDS: Bupropion 150 MG XL TAB PO SCH (08:42)
[2021-08-31] MEDS: Lisinopril 5 MG TAB PO SCH (08:42)
[2021-08-31] MEDS: Famotidine 20 MG TAB PO SCH ×2 (08:42→21:18)
[2021-08-31] MEDS: Lantus 1000 UNITS/10 ML VIAL SC SCH (08:42)
[2021-08-31] MEDS: HYDROcodone/Acetaminophen 5/325 mg Tablet PO PRN ×2 (12:50→21:17)
[2021-08-31] MEDS: Atorvastatin Calcium 40 MG TAB PO SCH (21:17)
[2021-08-31] MEDS: Empagliflozin 10 MG TAB PO SCH (21:18)
[2021-09-01 05:18] LABS: Anion Gap 13 mmol/L (10-20); BUN (Urea Nitrogen) 22 mg/dL (8.4-25.7); Calc. Creatinine Clearance 127 mL/min (70-130); Calcium 8.3 mg/dL (7.8-10.44); Carbon Dioxide 24 mmol/L (23-31); Chloride 107 mmol/L (98-107); Glucose 97 mg/dL (80-115); Potassium 3.4 mmol/L (3.5-5.1); Sodium 141 mmol/L (136-145)
[2021-09-01] MEDS: Furosemide 40 MG TAB PO SCH (06:18)
[2021-09-01] MEDS ORDERED: Lisinopril 10 MG TAB PO SCH (09:00)
[2021-09-01] MEDS: Aspirin 325 mg Enteric Coated Tablet PO SCH (09:59)
[2021-09-01] MEDS: Metoprolol Tartrate 25 MG TAB PO SCH (09:59)
[2021-09-01] MEDS: Famotidine 20 MG TAB PO SCH (09:59)
[2021-09-01] MEDS: Pregabalin 75 MG CAP PO SCH (09:59)
[2021-09-01] MEDS: Potassium Chloride 10 MEQ TAB PO SCH (09:59)
[2021-09-01] MEDS: Lantus 1000 UNITS/10 ML VIAL SC SCH (10:00)
[2021-09-01] MEDS: Bupropion 150 MG XL TAB PO SCH (10:00)
[2021-09-01] MEDS: Polyethylene Glycol 3350 17 GM Packet PO SCH (10:02)
[2021-09-01 11:34] VITALS: TEMP 98.1
[2021-09-01] MEDS: Insulin Regular 300 UNITS/3 ML VIAL SC PRN (11:34)
[2021-09-01 12:21] VITALS: BP 175/74
[2021-09-02] MEDS ORDERED: Furosemide 40 MG TAB PO SCH (06:00)
== END 2021-09-01 13:26 | disposition home or self-care (01) | DRG 236 ==
LOC: EDSTATUS 09:00 → SURG A 08-28 05:48 → CCU 08-28 11:41 → 2NO 08-29 15:10
PROVIDERS: ADMIT Thoracic Surgery (Cardiothoracic Vascular Surgery); ATTEND Thoracic Surgery (Cardiothoracic Vascular Surgery)
PROC: 02100AW Bypass Coronary Artery, One Artery from Aorta with Autologous Arterial Tissue, Open Approach (ICD-10-PCS; principal; 2021-08-28)
PROC: 021209W Bypass Coronary Artery, Three Arteries from Aorta with Autologous Venous Tissue, Open Approach (ICD-10-PCS; 2021-08-28)
PROC: 06BQ0ZZ Excision of Left Saphenous Vein, Open Approach (ICD-10-PCS; 2021-08-28)
PROC: 5A1221Z Performance of Cardiac Output, Continuous (ICD-10-PCS; 2021-08-28)
DX: I25.10 Atherosclerotic heart disease of native coronary artery without angina pectoris (principal); I10 Essential (primary) hypertension; E78.5 Hyperlipidemia, unspecified; E11.9 Type 2 diabetes mellitus without complications; E66.01 Morbid (severe) obesity due to excess calories; Z20.822 Contact with and (suspected) exposure to COVID-19; E78.00 Pure hypercholesterolemia, unspecified; G89.29 Other chronic pain; Z90.49 Acquired absence of other specified parts of digestive tract; Z88.8 Allergy status to other drugs, medicaments and biological substances; Z91.013 Allergy to seafood; I25.2 Old myocardial infarction; Z95.5 Presence of coronary angioplasty implant and graft; Z68.35 Body mass index [BMI] 35.0-35.9, adult
CPT/HCPCS: 36415; 36416; 36430; 71045; 80048; 85025; 85027; 85610; 85730; 86850; 86900; 86901; 93005; 93010; 93798; 94002; 94150; C1713; C1776; J0153; J0690; J1265; J1642; J1644; J1815; J1885; J2001; J2150; J2250; J2440; J2704; J2720; J3010; J3370; J3475; J3480; J3490; J7120; P9045; S0017; S0028; U0003; U0005

== ENCOUNTER 2021-08-24 09:02 | Outpatient (CLI) | payer MEDICARE | END 2021-08-24 09:03 | disposition home or self-care (01) | LOC: LABBT 09:02 | PROVIDERS: ATTEND Thoracic Surgery (Cardiothoracic Vascular Surgery) | DX: Z01.812 Encounter for preprocedural laboratory examination (principal); R94.39 Abnormal result of other cardiovascular function study; Z20.822 Contact with and (suspected) exposure to COVID-19 | CPT/HCPCS: 80048; 85027; 86850; 86900; 86901; U0003; U0005 ==

== ENCOUNTER 2023-01-10 12:22 | Outpatient (CLI) | payer MEDICARE | END 2023-01-10 12:23 | disposition home or self-care (01) | LOC: BICCT 12:22 | DX: M47.896 Other spondylosis, lumbar region (principal); M47.817 Spondylosis without myelopathy or radiculopathy, lumbosacral region | CPT/HCPCS: 72131 ==